=== PATIENT | female | born 1940 | race Caucasian/White ===

== ENCOUNTER 2018-05-11 10:42 | Inpatient (IN) | payer MEDICARE, OTHER ==
[2018-05-11] MEDS ORDERED: traMADol 50 MG Tab PO PRN (17:55)
[2018-05-11] MEDS ORDERED: Simethicone 80 MG Tab.Chew PO PRN (17:55)
[2018-05-11] MEDS ORDERED: Magnesium Hydroxide 400 MG/5 ML Susp 30 ML Cup PO PRN (17:55)
[2018-05-11] MEDS ORDERED: Calcium Carbonate 500 MG Tab.Chew PO PRN (17:55)
[2018-05-11] MEDS ORDERED: oxyCODONE 5 MG Tab PO PRN ×2 (17:55→20:00)
[2018-05-11] MEDS ORDERED: methylPREDNISolone Acetate 80 MG/ML SDV IM ONE (17:59)
[2018-05-11] MEDS ORDERED: Ferrous Sulfate 325 MG Tab PO ONE (19:15)
--- NOTE | 2018-05-11 19:21 | PCM.HP ---
H&P History of Present Illness - General Date of Service: 05/11/18 Admit Problem/Dx: Admission Diagnosis/Problem Admission Diagnosis/Problem Osteoarthritis Source of Information: Patient, Old Records ([facility] chart/EMR), Other (Limited records from [facility]) History Limitations: Reports: No Limitations - History of Present Illness Initial Comments - Free Text/Narative: Patient was brought to this facility right automobile from [facility] in [place] for direct admission into our swing bed unit for further strengthening, PT , OT, etc. after recent successful right hip TEP on 05/08/18. No significant complications during that hospitalization other than some mild postoperative anemia with no transfusions required. She also developed a diffuse body rash of unknown etiology with Benadryl started as per day by patient history. The patient denies any chest pain/pressure, heart flutter, dizziness, orthostasis, orthopnea, diaphoresis, paresthesias, recent decreased exercise tolerance, or any other anginal-type symptoms. No recent history of abdominal pain, heartburn , nausea, diarrhea, melena, gross hematochezia, or any food intolerance, including fatty foods, etc.. She denies any current gross hematuria, dysuria, colic, or other UTI symptoms with stable baseline urinary incontinence. The patient also denies any recent fever, cough, wheezing, dyspnea, etc.. No history of recent headaches, visual changes, diplopia, change in mental status, or other change in neurological status. Her post operative pain has remained stable. Location: Reports: Lower Extremity, Right. Denies: Head, Face, Neck, Chest, Abdomen, Back, Pelvis, Upper Extremity, Right, Lower Extremity, Left, Radiates to Quality: Reports: Ache, Same as Previous Episode Severity: Mild Improves with: Reports: Rest Worsens with: Reports: Movement Context: Reports: Other (As above) Associated Symptoms: Reports: No Other Symptoms. Denies: Confusion, Chest Pain , Cough, Diaphoresis, Fever/Chills, Headaches, Loss of Appetite, Malaise, Nausea /Vomiting, Seizure, Shortness of Breath, Syncope, Weakness Right Hip Pain Score (Numeric/FACES): 4 - Related Data Allergies/Adverse Reactions: Allergies Allergy/AdvReac Type Severity Reaction Status Date / Time No Known Allergies Allergy Verified 12/20/13 11:28 Home Medications: Home Meds Acetaminophen 650 mg PO Q4HR PRN 05/11/18 [History] Aspirin [Ecotrin] 325 mg PO BID 05/11/18 [History] Bisacodyl 5 mg PO BID PRN 05/11/18 [History] Calcium Carbonate [Tums] 500 mg PO DAILY PRN 05/11/18 [History] Celecoxib [CeleBREX] 200 mg PO BID 05/11/18 [History] Cholecalciferol (Vitamin D3) [D-2000] 2,000 unit PO DAILY 05/11/18 [History] Citalopram [Citalopram HBr] 20 mg PO BEDTIME 05/11/18 [History] Cyanocobalamin (Vitamin B-12) [B-12] 500 mcg PO DAILY 05/11/18 [History] Famotidine 10 mg PO BID 05/11/18 [History] Ferrous Sulfate 325 mg PO ASDIRECTED 05/11/18 [History] Fexofenadine [Tracie] 180 mg PO DAILY 05/11/18 [History] Gluc Lacy/Msm/Magnesium/Vit C [Glucosamine Complex-MSM] 2 tab PO BID 05/11/18 [ History] L.acidoph,Paracasei, B.lactis [Probiotic] 1 each PO DAILY 05/11/18 [History] Magnesium Hydroxide [Milk of Magnesia] 30 ml PO BID PRN 05/11/18 [History] Multivitamin [Super Multivitamin] 1 each PO DAILY 05/11/18 [History] Non-Formulary Medication [NF Drug] 1 cap PO DAILY 05/11/18 [History] Non-Formulary Medication [NF Drug] 1 tab PO DAILY 05/11/18 [History] Omeprazole 20 mg PO DAILY 05/11/18 [History] Oxybutynin 2.5 mg PO BID 05/11/18 [History] Pravastatin [Pravachol] 20 mg PO BEDTIME 05/11/18 [History] Simethicone 80 mg PO Q6H PRN 05/11/18 [History] Ubidecarenone [Coq-10] 100 mg PO BID 05/11/18 [History] diphenhydrAMINE HCl [Benadryl] 25 mg PO DAILY 05/11/18 [History] oxyCODONE 5 mg PO Q6HR PRN 05/11/18 [History] traMADol [Ultram] 50 mg PO Q6HR PRN 05/11/18 [History] Past Medical History HEENT History: Reports: Allergic Rhinitis, Cataract, Glaucoma, Impaired Vision, Retinal Detachment, Other (See Below). Denies: Hard of Hearing, Macular Degeneration Other HEENT History: Patient wears bifocals. Dry eye syndrome. Cardiovascular History: Reports: Heart Murmur, High Cholesterol, Other (See Below). Denies: Afib, Aneurysm, Arrhythmia, Blood Clots/VTE/DVT, CAD, Heart Failure, WI, PVD, Syncope Other Cardiovascular History: Moderate aortic valve stenosis and mild to moderate mitral valve deficiency by clinical exam with no previous workup Respiratory History: Reports: Intubation, Previous. Denies: Asthma, Bronchitis , Recurrent, COPD, Intubation, Difficult, PE, Pneumonia, Recurrent, Pneumothorax , Sleep Apnea Gastrointestinal History: Reports: Chronic Constipation, GERD, Hemorrhoids. Denies: Celiac Disease, Cholelithiasis, Chronic Diarrhea, Colon Polyp, Fecal Incontinence, Gastritis, GI Bleed, Hepatitis, Inflammatory Bowel Disease, Irritable Bowel Syndrome, Jaundice, Pancreatitis, PUD Genitourinary History: Reports: Urinary Incontinence, Other (See Below). Denies : Acute Renal Failure, Chronic Renal Insuffiency, Renal Calculus, Retention, Urinary, STD Other Genitourinary History: History of stress incontinence [employer] History: Reports: Dysfunctional Uterine Bleeding, Fibroids, , Spontaneous . Denies: Endometriosis, Polycystic Ovaries : 5 Para: 4 LMP (Approximate): Other (See Below) Other OB/BYN History: Positive at about age 51. Third with placenta previa and early delivery at 34 weeks gestation. Otherwise Full term without complications during pregnancies or deliveries. First trimester SAB not requiring D&C. Musculoskeletal History: Reports: Arthritis, Back Pain, Chronic, Fracture, Fibromyalgia, Neck Pain, Chronic, Osteoarthritis, Osteoporosis. Denies: Amputation, Gout, RA, SLE Other Musculoskeletal History: Vertebral body compression fractures of L1, L3, and L5 by MRI. Right fifth metatarsal fracture in about 1979. Right proximal humeral fracture on 12/10/14. Lumbar spinal stenosis. Neurological History: Reports: None. Denies: Cerebral Aneurysms, Concussion, CVA, Headaches, Chronic, Head Trauma, Migraines, MS, Neuropathy, Peripheral, Parkinson's, Seizure, TIA Psychiatric History: Reports: Anxiety, Depression. Denies: Abuse, Victim of, ADD, ADHD, Addiction, Psych Hospitalization(s), PTSD, Suicide Attempt, Suicidal Ideation Endocrine/Metabolic History: Reports: Obesity/BMI 30+, Osteopenia, Osteoporosis. Denies: Diabetes, Type I, Diabetes, Type II, Hypothyroidism, IDDM Hematologic History: Reports: Anemia, Blood Transfusion(s), Iron Deficiency, Other (See Below). Denies: B12 Deficiency Other Hematologic History: blood transfusion after her third delivery in October 1965 Immunologic History: Reports: None. Denies: AIDS, HIV, SLE Oncologic (Cancer) History: Reports: None. Denies: Basal Cell Carcinoma, Breast , Cervix, Colon, Hodgkin's Lymphoma, Leukemia, Lymphoma, Malignant Melanoma, Non -Hodgkin's Lymphoma, Ovarian, Squamous Cell Carcinoma, Uterine Dermatologic History: Reports: Other (See Below). Denies: Eczema, Psoriasis Other Dermatologic History: Actinic keratosis. - Infectious Disease History Infectious Disease History: Reports: Chicken Pox, Measles. Denies: C-Difficile , Meningitis, Mononucleosis, MRSA, Mumps, Pertussis (Whooping Cough), Rheumatic Fever, Rubella, Scarlet Fever, Shingles, TB, VRE - Past Surgical History Head Surgeries/Procedures: Reports: Other (See Below) Other Head Surgeries/Procedures: IR cerebral embolization per [facility] records, although the patient is not aware of this. HEENT Surgical History: Reports: Cataract Surgery, Detached Retina, Eye Surgery , Oral Surgery, Other (See Below). Denies: Adenoidectomy, LASIK, Myringotomy w Tube(s), Naso-Sinus Surgery, Polypectomy, Tonsillectomy Other HEENT Surgeries/Procedures: Waddy teeth extraction 2 with 1 tooth in about 1999 and the second tooth in about 2005. Known type of left eye surgery in about 1999. Left cataract surgery on 11/30/17. Right cataract surgery on . Corneal repair for retinal detachment in 1996. Iridectomy bilaterally with YAG treatment on 10/11/17 Cardiovascular Surgical History: Reports: None, Varicose, Other (See Below) Other Cardiovascular Surgeries/Procedures: Varicose vein stripping of the left leg in about 2007. Respiratory Surgical History: Reports: None. Denies: Thoracentesis GI Surgical History: Reports: Colonoscopy, Other (See Below). Denies: Appendectomy, Cholecystectomy, EGD, Hernia, Abdominal, Hernia, Inguinal, Hernia Repair/Other, Polypectomy Other GI Surgeries/Procedures: Last colonoscopy on 01/10/14. Female Surgical History: Reports: Breast Biopsy, Other (See Below). Denies: D&C, Hysterectomy, Oophorectomy, Salpingo-Oophorectomy, Tubal Ligation Other Female Surgeries/Procedures: Breast biopsy of the right breast in 1988 with subsequent right breast biopsy in the for benign disease. Endocrine Surgical History: Reports: None. Denies: Thyroid Biopsy Neurological Surgical History: Reports: None. Denies: C-Spine, Discectomy, Laminectomy, Lumbar Spine, Sacral Spine, Spinal Fusion, Thoracic Spine, Vertebroplasty Musculoskeletal Surgical History: Reports: Carpal Tunnel, Hip Replacement, Other (See Below). Denies: Arthroscopic Procedure, Ganglion Cyst, ORIF, Shoulder Surgery Other Musculoskeletal Surgeries/Procedures:: Left hip TEP on 08/01/12. Right hip TEP on 05/08/18. Bilateral carpal tunnel release in about 2001 Oncologic Surgical History: Reports: None Dermatological Surgical History: Reports: None - Past Imaging History Past Imaging History: Reports: Bone Scan (Bone scan of the thoracic and lumbar spines on 05/11/12), DEXA Scan (04/24/12), Mammogram (Last mammogram on 03/17/18), MRI (MRI of the C-spine on 05/23/12. MRI of the lumbar spine on 05/29/12.), Ultrasound (Soft tissue ultrasound at T3 on 11/06/12.) Social & Family History - Family History HEENT: Reports: Cataract, Impaired Vision, Macular Degeneration, Other (See Below). Denies: Allergic Rhinitis, Glaucoma, Retinal Detachment Other HEENT Family History: Mother with macular degeneration and cataracts. Cardiac: Reports: Arrhythmia, CAD, Heart Failure, Hypertension, Other (See Below ). Denies: Afib, Aneurysm, Blood Clots/VTE/DVT, Heart Murmur, High Cholesterol , WI, PVD/COD Other Cardiac Family History: Mother with fatal CHF at age 94 with additional history of hypertension. Sister with unknown type of tachycardia. Father with hypertension. Respiratory: Reports: None. Denies: Asthma, COPD, PE, Pneumothorax, Sleep Apnea GI: Reports: Celiac Disease, Other (See Below). Denies: Cholelithiasis, Colon Polyps, GERD, GI bleed, Hepatitis, Hiatal Hernia, Inflammatory Bowel Disease, Irritable Bowel Syndrome Other GI Family History: Mother with irritable bowel syndrome. Niece with celiac disease. : Reports: None. Denies: Renal Calculus, Renal Disease/Insufficiency OBGYN: Reports: Dysfunctional uterine bleeding, Endometriosis, Fibroids, Other ( See Below). Denies: Recurrent Spontaneous Other OBGYN Family History: Daughter with endometriosis and uterine fibroids requiring hysterectomy. Musculoskeletal: Reports: Arthritis, Back pain, Chronic, Osteoarthritis, Other ( See Below) (Father). Denies: Gout, RA, SLE Other Musculoskeletal Family History: Father with osteoarthritis. Neurological: Reports: Migraines, Other (See Below). Denies: Alzheimers Disease , Cerebral Aneurysms, CVA, Dementia, MS, Neuropathy, Peripheral, Seizure, TIA Other Neurological Family History: Son, daughter, and granddaughter with migraine headaches Psychiatric: Reports: Anxiety, Depression, Other (See Below). Denies: Abuse, Victim of, ADD, ADHD, PTSD Other Psychiatric Family History: Father with anxiety depression disorder and alcohol abuse Endocrine/Metabolic: Reports: Diabetes, Type I, IDDM, Other (See Below). Denies : Diabetes, type II, Hypothyroidism Other Endocrine/Metabolic Family History: Nephew with type I IDDM Hematologic: Reports: None. Denies: Anemia, SLE Immunologic: Reports: None. Denies: AIDS, HIV, SLE Dermatologic: Reports: None. Denies: Eczema, Psoriasis Oncologic: Reports: Lymphoma, Other (See Below). Denies: Breast, Cervix, Colon , Hodgkin's Lymphoma, Leukemia, Non-Hodgkin's Lymphoma, Skin Other Oncologic Family History: Father with fatal lymphoma at age 76. - Tobacco Use Smoking Status *Q: Never Smoker Tobacco Use Within Last Twelve Months: No Used Tobacco, but Quit: No Smoking Cessation Information Provided To Patient: No Second Hand Smoke Exposure: No Second Hand Smoke Education Provided: No - Caffeine Use Caffeine Use: Reports: Soda (2 sodas per day), Tea (One cup every 2 weeks). 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 Exam - Exam Exam: See Below - Vital Signs Vital Signs: Last Vital Signs Temp 36.0 C 05/11/18 17:45 Pulse 76 05/11/18 17:45 Resp 18 05/11/18 17:45 BP 115/57 L 05/11/18 17:45 Pulse Ox 93 L 05/11/18 17:45 Weight: 114.487 kg - Exam Quality Assessment: DVT Prophylaxis. No: Supplemental Oxygen, Central Line/PICC , Urinary Catheter, Skin Breakdown, Restraints General: Alert, Oriented, Cooperative HEENT: Conjunctiva Clear, EACs Clear, EOMI, Hearing Intact, Mucosa Moist & Spivey , Nares Patent, Normal Nasal Septum, Posterior Pharynx Clear, TMs Clear, Glasses , PERRLA Neck: Supple, Trachea Midline, Full Range of Motion, Carotid Bruit (Mild to moderate bilateral carotid bruits versus transmitted heart sounds). No: Lymphadenopathy, Thyromegaly Lungs: Clear to Auscultation, Normal Respiratory Effort. No: Rub Cardiovascular: Regular Rate, Regular Rhythm, Normal S1, Normal S2, Systolic Murmur (3/6 ADRIANNE of the aortic valve with 2/6 ADRIANNE of the mitral valve). No: Diastolic Murmur, Rubs, Gallop/S3, Gallop/S4 GI/Abdominal Exam: Normal Bowel Sounds, Soft, Non-Tender, No Organomegaly, No Distention, No Abnormal Bruit, No Mass, Pelvis Stable, Other (Obese). No: Guarding (Female) Exam: Deferred Rectal (Female) Exam: Deferred Back Exam: Normal Inspection, Full Range of Motion. No: CVA Tenderness (L), CVA Tenderness (R), Muscle Spasm Extremities: No Pedal Edema, Normal Capillary Refill, Limited Range of Motion ( Right hip secondary to recent surgery with dressing in place and no evidence significant drainage, etc.). No: Pedal Edema, Susan's Sign Peripheral Pulses: 1+: Dorsalis Pedis (L), Dorsalis Pedis (R), 2+: Radial (L), Radial (R) Skin: Rash (Moderate to severe diffuse body rash including back, chest, neck, axillary and inguinal regions, etc. No angioedema.), Incision (Postoperative incision right hip) Neurological: Cranial Nerves Intact, Reflexes Equal Bilateral. No: Babinski Psychiatric: Alert, Normal Affect, Normal Mood. No: Agitated, Hallucinations, Withdrawal Symptoms - Patient Data Lab Results Last 24 hrs: Blood work to be conducted in the a.m. - Problem List (1) Heart murmur SNOMED Code(s): 88958320 ICD Code: R01.1 - CARDIAC MURMUR, UNSPECIFIED Status: Chronic Priority: Medium Current Visit: Yes Problem Details: Significant cardiac murmurs as above. Echocardiogram recommended after discharge from swing bed.. No chest pain or anginal symptoms. Consider further cardiac workup depending on her clinical course. (2) Hyperlipidemia SNOMED Code(s): 85284540 ICD Code: E78.5 - HYPERLIPIDEMIA, UNSPECIFIED Status: Chronic Priority: Medium Current Visit: Yes Problem Details: Close follow-up by regular providers after discharge Qualifiers: Hyperlipidemia type: unspecified Qualified Code(s): E78.5 - Hyperlipidemia , unspecified (3) Iron deficiency anemia SNOMED Code(s): 57026760 ICD Code: D50.9 - IRON DEFICIENCY ANEMIA, UNSPECIFIED Status: Chronic Priority: Medium Current Visit: Yes Problem Details: Iron studies to be conducted in the a.m. Note some postoperative anemia prior to discharge. Qualifiers: Iron deficiency anemia type: other iron deficiency Qualified Code(s): D50.8 - Other iron deficiency anemias (4) Mixed anxiety and depressive disorder SNOMED Code(s): 180985492 ICD Code: F41.8 - OTHER SPECIFIED ANXIETY DISORDERS Status: Chronic Priority: Medium Current Visit: Yes Problem Details: Stable by patient history (5) Osteoarthritis SNOMED Code(s): 979532235 ICD Code: M19.90 - UNSPECIFIED OSTEOARTHRITIS, UNSPECIFIED SITE Status: Acute Priority: Medium Current Visit: No Problem Details: Otherwise stable by patient history after recent right hip surgery as above. Continue to observe closely secondary to discontinuation of Celebrex as below. (6) Peptic reflux disease SNOMED Code(s): 834196972 ICD Code: K21.9 - GASTRO-ESOPHAGEAL REFLUX DISEASE WITHOUT ESOPHAGITIS Status: Acute Priority: Medium Current Visit: Yes Problem Details: Stable with current medications (7) Allergic dermatitis SNOMED Code(s): 338398131 ICD Code: L23.9 - ALLERGIC CONTACT DERMATITIS, UNSPECIFIED CAUSE Status: Acute Priority: High Current Visit: Yes Onset Date: ~05/10/18 Problem Details: Significant allergic dermatitis of unknown etiology. Hold Celebrex for now. Patient's Benadryl is to be increased with additional IM Depo-Medrol given shortly after admission. Problem List Initiated/Reviewed/Updated: Yes Orders Last 24hrs: Active Orders 24 hr Category Date Time Status Patient Status [ADT] Routine ADT 05/11/18 13:00 Active Ambulate [RC] ASDIRECTED Care 05/11/18 17:45 Active Ambulate [RC] ASDIRECTED Care 05/11/18 17:45 Active Communication Order [RC] DAILY Care 05/11/18 19:12 Active Communication Order [RC] DAILY Care 05/11/18 19:15 Active Communication Order [RC] ROUTINE Care 05/11/18 18:02 Active Height and Weight [RC] PER UNIT ROUTINE Care 05/11/18 17:49 Active Intake and Output [RC] ASDIRECTED Care 05/11/18 17:45 Active May Shower [RC] ASDIRECTED Care 05/11/18 17:45 Active Notify Provider Vital Signs [RC] ASDIRECTED Care 05/11/18 17:49 Active Oxygen Therapy [RC] PRN Care 05/11/18 17:45 Active VTE/DVT Education [RC] PER UNIT ROUTINE Care 05/11/18 17:45 Active Vital Signs [RC] PER UNIT ROUTINE Care 05/11/18 17:45 Active Consult to Case Management [CONS] Routine Cons 05/11/18 17:45 Active Consult to Chop Saw Operator [CONS] Routine Cons 05/11/18 17:45 Active Consult to Spiritual Care [CONS] Routine Cons 05/11/18 17:45 Active OT Evaluation and Treatment [CONS] Routine Cons 05/11/18 17:45 Active PT Evaluation and Treatment [CONS] Routine Cons 05/11/18 17:45 Active Heart Healthy Diet [DIET] Diet 05/11/18 Dinner Active Acetaminophen [Tylenol] Med 05/11/18 17:55 Active 650 mg PO Q4H PRN Aspirin [Ecotrin] Med 05/11/18 18:00 Active 325 mg PO BID Bisacodyl [Dulcolax] Med 05/11/18 17:55 Active 5 mg PO BID PRN Calcium Carbonate [Tums] Med 05/11/18 17:55 Pending 500 mg PO DAILY PRN Calcium Carbonate/Vitamin D3 [Caltrate 600+D 1500 MG- Med 05/12/18 08:00 Active 400 Units] 1 tab PO DAILY Cholecalciferol (Vitamin D3) [Vitamin D3] Med 05/12/18 08:00 Active 2,000 units PO DAILY Chondroitin/Glucosamine [Glucosamine-Chondroitin 500- Med 05/11/18 18:00 Active 400 Capsule] 2 cap PO BID Citalopram [Celexa] Med 05/11/18 20:00 Active 20 mg PO BEDTIME Cyanocobalamin (Vitamin B12) [Vitamin B12] Med 05/12/18 08:00 Active 500 mcg PO DAILY Famotidine [Pepcid] Med 05/11/18 18:00 Active 20 mg PO BID Ferrous Sulfate Med 05/11/18 18:00 Pending 325 mg PO ASDIRECTED Fexofenadine [Tracie] Med 05/12/18 08:00 Active 180 mg PO DAILY Lactobacillus Rhamnosus GG [Culturelle] Med 05/12/18 08:00 Active 1 cap PO DAILY Magnesium Hydroxide [Milk of Magnesia] Med 05/11/18 17:55 Active 30 ml PO BID PRN Multivitamins [Tab-A-Rd] Med 05/12/18 08:00 Active 1 tab PO DAILY Non-Formulary Medication [NF Drug] Med 05/12/18 08:00 Pending DOSE each PO DAILY Omeprazole Med 05/12/18 08:00 Active 20 mg PO DAILY Oxybutynin Med 05/11/18 18:00 Active 2.5 mg PO BID Pravastatin [Pravachol] Med 05/11/18 20:00 Active 20 mg PO BEDTIME Simethicone Med 05/11/18 17:55 Active 80 mg PO Q6H PRN Ubidecarenone [Coenzyme Q10] Med 05/11/18 18:00 Pending 100 mg PO BID diphenhydrAMINE [Benadryl] Med 05/11/18 17:59 Active 25 mg PO Q4H PRN oxyCODONE Med 05/11/18 17:55 Active 5 mg PO Q6HR PRN traMADol [Ultram] Med 05/11/18 17:55 Active 50 mg PO Q6HR PRN Anticoagulation Contraindications VTE [AST] Per Unit Oth 05/11/18 17:45 Ordered Routine Anticoagulation Contraindications VTE [AST] Routine Oth 05/11/18 17:45 Ordered Antiembolic Hose [OM.PC] Per Unit Routine Oth 05/11/18 17:49 Ordered Patient May [OM.PC] Click To Edit Oth 05/11/18 17:45 Ordered VTE Mechanical Contraindications [AST] Per Unit Routine Oth 05/11/18 17:45 Ordered VTE Mechanical Contraindications [AST] Routine Oth 05/11/18 17:45 Ordered VTE Pharmacological Contraindications [AST] Per Unit Oth 05/11/18 17:45 Ordered Routine VTE Pharmacological Contraindications [AST] Routine Ot 05/11/18 17:45 Ordered Resuscitation Status Routine Resus Stat 05/11/18 17:45 Ordered Medication Orders Acetaminophen (Tylenol) 650 mg PO Q4H PRN PRN Reason: Pain Aspirin (Ecotrin) 325 mg PO BID [facility] Stop: 06/13/18 08:01 Bisacodyl (Dulcolax) 5 mg PO BID PRN PRN Reason: Constipation Calcium Carbonate (Caltrate 600+D 1500 Mg-400 Units) 1 tab PO DAILY [facility] Calcium Carbonate/Glycine (Tums) 500 mg PO DAILY PRN PRN Reason: Pain Cholecalciferol (Vitamin D3) 2,000 units PO DAILY [facility] Citalopram Hydrobromide (Celexa) 20 mg PO BEDTIME [facility] Coenzyme Q10 (Coenzyme Q10) 100 mg PO BID [facility] Cyanocobalamin (Vitamin B12) 500 mcg PO DAILY [facility] Diphenhydramine HCl (Benadryl) 25 mg PO Q4H PRN PRN Reason: Itching Famotidine (Pepcid) 20 mg PO BID [facility] Ferrous Sulfate (Ferrous Sulfate) 325 mg PO ASDIRECTED [facility] Fexofenadine HCl (Tracie) 180 mg PO DAILY [facility] Glucosamine/Chondroitin (Glucosamine-Chondroitin 500-400 Capsule) 2 cap PO BID [facility] Lactobacillus Rhamnosus (Culturelle) 1 cap PO DAILY [facility] Magnesium Hydroxide (Milk Of Magnesia) 30 ml PO BID PRN PRN Reason: Constipation Multivitamins/Minerals/Vitamin C (Tab-A-Rd) 1 tab PO DAILY [facility] Non-Formulary Medication (Nf Drug) each PO DAILY [facility] Omeprazole (Omeprazole) 20 mg PO DAILY [facility] Oxybutynin Chloride (Oxybutynin) 2.5 mg PO BID [facility] Oxycodone HCl (Oxycodone) 5 mg PO Q6HR PRN PRN Reason: Pain Pravastatin Sodium (Pravachol) 20 mg PO BEDTIME [facility] Simethicone (Simethicone) 80 mg PO Q6H PRN PRN Reason: Gas Tramadol HCl (Ultram) 50 mg PO Q6HR PRN PRN Reason: Pain Assessment/Plan Comment:: As above. Physical therapy, occupational therapy, etc. ordered for strengthening. Blood work to be conducted in the a.m. Extensive precautions were given to the patient, who is in agreement with the treatment plan. Discharge to home after patient completes physical therapy, etc.
[2018-05-11] MEDS: Aspirin 325 MG Tab.EC PO SCH (19:53)
[2018-05-11] MEDS: Chondroitin/Glucosamine Cap PO SCH (19:53)
[2018-05-11] MEDS: Oxybutynin 5 MG Tab PO SCH (19:55)
[2018-05-11] MEDS: Famotidine 20 MG Tab PO SCH (19:55)
[2018-05-11] MEDS: Citalopram 20 MG Tab PO SCH (19:56)
[2018-05-11] MEDS: Pravastatin 20 MG Tab PO SCH (19:57)
[2018-05-11] MEDS: traMADol 50 MG Tab PO PRN (20:01)
[2018-05-11] MEDS: diphenhydrAMINE 25 MG Cap PO PRN (20:10)
[2018-05-12] MEDS: Acetaminophen 325 MG Tab PO PRN (01:13)
[2018-05-12] MEDS: Aspirin 325 MG Tab.EC PO SCH ×2 (07:50→18:07)
[2018-05-12] MEDS: Calcium Carbonate/Vitamin D3 1500 MG-400 Units Tab PO SCH (07:50)
[2018-05-12] MEDS: Lactobacillus Rhamnosus GG (Probiotic) Cap PO SCH (07:50)
[2018-05-12] MEDS: Oxybutynin 5 MG Tab PO SCH ×2 (07:51→18:08)
[2018-05-12] MEDS: Chondroitin/Glucosamine Cap PO SCH ×2 (07:51→18:08)
[2018-05-12] MEDS: Omeprazole 20 MG Cap.CR PO SCH (07:51)
[2018-05-12] MEDS: Famotidine 20 MG Tab PO SCH ×2 (07:52→18:10)
[2018-05-12] MEDS: Multivitamin Tab PO SCH (07:52)
[2018-05-12] MEDS: Cyanocobalamin (Vitamin B12) 1,000 MCG Tab PO SCH (07:53)
[2018-05-12] MEDS: Cholecalciferol (Vitamin D3) 1,000 Unit Tab PO SCH (07:54)
[2018-05-12 08:50] LABS: CHLORIDE,CL 105 mmol/L (98-107); SODIUM,NA 138 mmol/L (136-145)
[2018-05-12] MEDS: traMADol 50 MG Tab PO PRN ×2 (10:56→19:53)
[2018-05-12] MEDS ORDERED: Ferrous Sulfate 325 MG Tab PO SCH (13:00)
--- NOTE | 2018-05-12 13:29 | PCM.SN ---
- Free Text/Narrative Note: Today's blood work results as below, EKG, chest x-ray findings were reviewed with the patient today. EKG does indicate T-wave inversion in leads 3 and V3 through V6 consistent with probable lateral wall cardiac ischemia. No chest pain or anginal type symptoms. Her current anemia may be a contributing factor in unmasking her possible cardiac ischemia. Secondary to her cardiac murmurs and today's EKG findings recommend further cardiac workup on an outpatient basis after discharge, including echocardiogram and probable dobutamine Cardiolite stress test. Today's chest x-ray, PA and lateral, shows somewhat poor inspiratory film with mild to moderate cardiomegaly, moderate COPD, and probable mild pulmonary hypertension versus centralized CHF. Note large hiatal hernia present with elevated left hemidiaphragm. Additional moderate osteoarthritic and osteoporotic changes noted in the thoracic spine with additional kyphosis. Patient may benefit from PFTs. The patient is currently nonsymptomatic on omeprazole therapy. Note mild thrombocytopenia with platelets of 138 and progressive postoperative anemia with hemoglobin of 8.7 and evidence of iron deficiency by today's blood work as below. Iron supplement to be increased to 3 times a day basis with recommended iron studies in about 4 weeks. Also note hypoalbuminemia with high-protein Glucerna supplements to be started on a twice a day basis. Glycosylated hemoglobin was normal today. Blood work will be repeated in one week. Her rash has improved somewhat today. Laboratory Results - last 24 hr 05/12/18 05/12/18 05/12/18 Range/Units 07:40 07:40 07:40 WBC 5.8 (4.0-10.2) K/uL RBC 2.77 L (3.77-5.09) M/uL Hgb 8.7 L (11.7-15.5) g/dL Hct 25.6 L (34.0-46.0) % MCV 92.4 (84.0-98.0) fL MCH 31.4 (28.2-33.3) pg MCHC 34.0 (31.7-36.0) g/dL RDW 13.3 (11.2-14.1) % Plt Count 138 L (150-350) K/uL Neut % (Auto) 77.6 (45.0-80.0) % Lymph % (Auto) 10.8 (10.0-50.0) % [place] % (Auto) 9.2 (2.0-14.0) % Eos % (Auto) 2.4 (0.0-5.0) % Baso % (Auto) 0.0 (0.0-2.0) % Neut # (Auto) 4.46 (1.40-7.00) K/uL Lymph # (Auto) 0.62 (0.50-3.50) K/uL [place] # (Auto) 0.53 (0.00-1.00) K/uL Eos # (Auto) 0.14 (0.00-0.50) K/uL Baso # (Auto) 0.00 (0.00-0.20) K/uL Sodium 138 (136-145) mmol/L Potassium 4.7 (3.5-5.1) mmol/L Chloride 105 (98-107) mmol/L Carbon Dioxide 26.3 (21.0-32.0) mmol/L BUN 15 (7-18) mg/dL Creatinine 0.65 (0.51-1.17) mg/dL Est Cr Clr Drug Dosing 76.95 mL/min Estimated GFR (MDRD) > 60 mL/min Glucose 131 H (74-106) mg/dL Hemoglobin A1c (4.3-5.7) % Uric Acid 3.5 (2.6-7.2) mg/dL Calcium 8.8 (8.5-10.1) mg/dL Magnesium 1.9 (1.8-2.4) mg/dL Iron 18 L (50-175) ug/dL TIBC 195 L (250-450) ug/dL % Saturation [id number] Total Bilirubin 0.4 (0.2-1.0) mg/dL AST 30 (15-37) U/L ALT 18 (12-78) U/L Alkaline Phosphatase 70 (46-116) IU/L Total Protein 6.0 L (6.4-8.2) g/dL Albumin 2.5 L (3.4-5.0) g/dL Vitamin B12 417 (193-986) pg/mL TSH, Ultra Sensitive 3.393 (0.358-3.740) mIU/mL 05/12/18 Range/Units 07:40 WBC (4.0-10.2) K/uL RBC (3.77-5.09) M/uL Hgb (11.7-15.5) g/dL Hct (34.0-46.0) % MCV (84.0-98.0) fL MCH (28.2-33.3) pg MCHC (31.7-36.0) g/dL RDW (11.2-14.1) % Plt Count (150-350) K/uL Neut % (Auto) (45.0-80.0) % Lymph % (Auto) (10.0-50.0) % [place] % (Auto) (2.0-14.0) % Eos % (Auto) (0.0-5.0) % Baso % (Auto) (0.0-2.0) % Neut # (Auto) (1.40-7.00) K/uL Lymph # (Auto) (0.50-3.50) K/uL [place] # (Auto) (0.00-1.00) K/uL Eos # (Auto) (0.00-0.50) K/uL Baso # (Auto) (0.00-0.20) K/uL Sodium (136-145) mmol/L Potassium (3.5-5.1) mmol/L Chloride (98-107) mmol/L Carbon Dioxide (21.0-32.0) mmol/L BUN (7-18) mg/dL Creatinine (0.51-1.17) mg/dL Est Cr Clr Drug Dosing mL/min Estimated GFR (MDRD) mL/min Glucose (74-106) mg/dL Hemoglobin A1c 5.8 H (4.3-5.7) % Uric Acid (2.6-7.2) mg/dL Calcium (8.5-10.1) mg/dL Magnesium (1.8-2.4) mg/dL Iron (50-175) ug/dL TIBC (250-450) ug/dL % Saturation Total Bilirubin (0.2-1.0) mg/dL AST (15-37) U/L ALT (12-78) U/L Alkaline Phosphatase (46-116) IU/L Total Protein (6.4-8.2) g/dL Albumin (3.4-5.0) g/dL Vitamin B12 (193-986) pg/mL TSH, Ultra Sensitive (0.358-3.740) mIU/mL
[2018-05-12] MEDS: Ferrous Sulfate 325 MG Tab PO SCH (18:08)
[2018-05-12] MEDS: Pravastatin 20 MG Tab PO SCH (19:46)
[2018-05-12] MEDS: Citalopram 20 MG Tab PO SCH (19:47)
[2018-05-13] MEDS: Calcium Carbonate/Vitamin D3 1500 MG-400 Units Tab PO SCH (08:32)
[2018-05-13] MEDS: Lactobacillus Rhamnosus GG (Probiotic) Cap PO SCH (08:33)
[2018-05-13] MEDS: Ferrous Sulfate 325 MG Tab PO SCH ×3 (08:34→17:51)
[2018-05-13] MEDS: Aspirin 325 MG Tab.EC PO SCH ×2 (08:34→17:50)
[2018-05-13] MEDS: Chondroitin/Glucosamine Cap PO SCH ×2 (08:35→17:51)
[2018-05-13] MEDS: Omeprazole 20 MG Cap.CR PO SCH (08:35)
[2018-05-13] MEDS: Oxybutynin 5 MG Tab PO SCH ×2 (08:41→17:52)
[2018-05-13] MEDS: Multivitamin Tab PO SCH (08:42)
[2018-05-13] MEDS: Famotidine 20 MG Tab PO SCH ×2 (08:42→17:52)
[2018-05-13] MEDS: Cyanocobalamin (Vitamin B12) 1,000 MCG Tab PO SCH (08:43)
[2018-05-13] MEDS: Cholecalciferol (Vitamin D3) 1,000 Unit Tab PO SCH (08:43)
[2018-05-13] MEDS: Acetaminophen 325 MG Tab PO PRN ×2 (08:46→17:54)
[2018-05-13] MEDS: Pravastatin 20 MG Tab PO SCH (19:47)
[2018-05-13] MEDS: Citalopram 20 MG Tab PO SCH (19:48)
[2018-05-13] MEDS: MAGNESIUM WITH ZINC PO SCH ×2 (22:31→22:33)
[2018-05-14] MEDS: diphenhydrAMINE 25 MG Cap PO PRN (02:35)
[2018-05-14] MEDS: Calcium Carbonate/Vitamin D3 1500 MG-400 Units Tab PO SCH (07:53)
[2018-05-14] MEDS: Lactobacillus Rhamnosus GG (Probiotic) Cap PO SCH (07:54)
[2018-05-14] MEDS: Aspirin 325 MG Tab.EC PO SCH ×2 (07:54→19:43)
[2018-05-14] MEDS: Ferrous Sulfate 325 MG Tab PO SCH ×3 (07:54→19:44)
[2018-05-14] MEDS: Chondroitin/Glucosamine Cap PO SCH ×2 (07:55→19:44)
[2018-05-14] MEDS: Omeprazole 20 MG Cap.CR PO SCH (07:56)
[2018-05-14] MEDS: Oxybutynin 5 MG Tab PO SCH ×2 (07:56→19:44)
[2018-05-14] MEDS: Famotidine 20 MG Tab PO SCH ×2 (07:58→19:46)
[2018-05-14] MEDS: Cyanocobalamin (Vitamin B12) 1,000 MCG Tab PO SCH (07:59)
[2018-05-14] MEDS: Multivitamin Tab PO SCH (07:59)
[2018-05-14] MEDS: Cholecalciferol (Vitamin D3) 1,000 Unit Tab PO SCH (08:00)
[2018-05-14] MEDS: Acetaminophen 325 MG Tab PO PRN (15:52)
[2018-05-14] MEDS ORDERED: Omeprazole 20 MG Cap.CR PO ONE (16:50)
[2018-05-14] MEDS: MAGNESIUM WITH ZINC PO SCH (17:18)
[2018-05-14] MEDS: Pravastatin 20 MG Tab PO SCH (20:57)
[2018-05-14] MEDS: Citalopram 20 MG Tab PO SCH (20:57)
[2018-05-15] MEDS: Calcium Carbonate/Vitamin D3 1500 MG-400 Units Tab PO SCH (09:09)
[2018-05-15] MEDS: Lactobacillus Rhamnosus GG (Probiotic) Cap PO SCH (09:10)
[2018-05-15] MEDS: Aspirin 325 MG Tab.EC PO SCH ×2 (09:11→17:32)
[2018-05-15] MEDS: Ferrous Sulfate 325 MG Tab PO SCH ×3 (09:12→17:32)
[2018-05-15] MEDS: Chondroitin/Glucosamine Cap PO SCH ×2 (09:12→17:33)
[2018-05-15] MEDS: MAGNESIUM WITH ZINC PO SCH (09:13)
[2018-05-15] MEDS: Omeprazole 20 MG Cap.CR PO SCH (09:14)
[2018-05-15] MEDS: Oxybutynin 5 MG Tab PO SCH ×2 (09:15→17:33)
[2018-05-15] MEDS: Famotidine 20 MG Tab PO SCH ×2 (09:16→17:34)
[2018-05-15] MEDS: Multivitamin Tab PO SCH (09:16)
[2018-05-15] MEDS: Cholecalciferol (Vitamin D3) 1,000 Unit Tab PO SCH (09:17)
[2018-05-15] MEDS: Cyanocobalamin (Vitamin B12) 1,000 MCG Tab PO SCH (09:18)
[2018-05-15] MEDS: Acetaminophen 325 MG Tab PO PRN (19:16)
[2018-05-15] MEDS: Bisacodyl 5 MG Tab PO PRN (19:17)
[2018-05-15] MEDS: Citalopram 20 MG Tab PO SCH (20:31)
[2018-05-15] MEDS: Magnesium Oxide 400 MG Tab PO SCH (20:32)
[2018-05-15] MEDS: Pravastatin 20 MG Tab PO SCH (20:32)
[2018-05-16] MEDS: Oxybutynin 5 MG Tab PO SCH ×2 (07:32→17:43)
[2018-05-16] MEDS: Omeprazole 20 MG Cap.CR PO SCH (07:32)
[2018-05-16] MEDS: Aspirin 325 MG Tab.EC PO SCH ×2 (08:48→17:41)
[2018-05-16] MEDS: Lactobacillus Rhamnosus GG (Probiotic) Cap PO SCH (08:48)
[2018-05-16] MEDS: Calcium Carbonate/Vitamin D3 1500 MG-400 Units Tab PO SCH (08:48)
[2018-05-16] MEDS: Ferrous Sulfate 325 MG Tab PO SCH ×3 (08:49→17:41)
[2018-05-16] MEDS: Chondroitin/Glucosamine Cap PO SCH ×2 (08:49→17:42)
[2018-05-16] MEDS: Famotidine 20 MG Tab PO SCH ×2 (08:50→17:42)
[2018-05-16] MEDS: Multivitamin Tab PO SCH (08:50)
[2018-05-16] MEDS: Cholecalciferol (Vitamin D3) 1,000 Unit Tab PO SCH (08:51)
[2018-05-16] MEDS: Bisacodyl 5 MG Tab PO PRN (09:33)
[2018-05-16] MEDS ORDERED: Cyanocobalamin (Vitamin B12) 1,000 MCG Tab PO SCH (20:00)
[2018-05-16] MEDS: Citalopram 20 MG Tab PO SCH (20:08)
[2018-05-16] MEDS: Pravastatin 20 MG Tab PO SCH (20:10)
[2018-05-16] MEDS: Magnesium Oxide 400 MG Tab PO SCH (20:18)
[2018-05-17] MEDS: Acetaminophen 325 MG Tab PO PRN ×2 (00:50→21:51)
[2018-05-17] MEDS: Oxybutynin 5 MG Tab PO SCH ×2 (07:37→17:36)
[2018-05-17] MEDS: Omeprazole 20 MG Cap.CR PO SCH (07:37)
[2018-05-17] MEDS: Aspirin 325 MG Tab.EC PO SCH ×2 (08:32→17:36)
[2018-05-17] MEDS: Ferrous Sulfate 325 MG Tab PO SCH (11:29)
[2018-05-17] MEDS: Citalopram 20 MG Tab PO SCH (19:34)
[2018-05-18] MEDS: Aspirin 325 MG Tab.EC PO SCH ×2 (07:25→18:01)
[2018-05-18] MEDS: Oxybutynin 5 MG Tab PO SCH ×2 (07:25→18:01)
[2018-05-18] MEDS: Omeprazole 20 MG Cap.CR PO SCH (07:25)
[2018-05-18 08:07] LABS: CHLORIDE,CL 104 mmol/L (98-107); SODIUM,NA 138 mmol/L (136-145)
--- OUTSIDE RECORDS SUMMARY | 2018-05-18 09:59 | XMSREPORT | Summary of Care ---
:1940 Author Organization [facility] Address [address] [place] [address] Phone Care Team Providers Name Role Phone Provider, No Attributed RESOURCE Attributed Provider Unavailable Elly Guerra Primary Care Provider Reason for Visit Auth/Cert (Routine) Status Reason Specialty Diagnoses / Referred By Referred To Procedures Contact Contact Continuity of Care Diagnoses Unilateral primary osteoarthritis, right knee DJD (degenerative joint disease) Pain in right hip Order initially indicated M17.11, right knee pain in error Uriah Welch, Procedures ARTHROPLASTY ACETABULAR PROXIMAL FEMORAL PROSTHETIC REPLACE [facility] GIORGIO REYES [address] [place] [id number] Encounter Details Date Type Department Care Team Description 05/08/2018 - Hospital Encounter [facility] Yuri, S/P total hip 05/11/[address] MD Uriah arthroplasty [address] [address] [place], [place] [phone] [facility] [phone] Allergies No Known Allergiesas of this encounter Medications Prescription Sig. Disp. Refills Start End Date Status Date oxyCODONE (OXY-IR) 5 Take 1 tablets 40 tablet 0 Active mg tablet (immediate for severe pain 8 release)Indications: if needed, every Status post total 6 hours. Also replacement of right you can take 1 hip tablet every 8 hours for breakthrough pain traMADol (ULTRAM) 50 Take 1 tablet 30 tablet 0 201 Active mg (50 mg) by mouth 8 tabletIndications: every 6 hours as Status post total needed for replacement of right moderate pain hip celecoxib (CELEBREX) Take 1 capsule 16 capsule 0 Active 200 mg (200 mg) by 8 capsuleIndications: mouth 2 times a Status post total day replacement of right hip acetaminophen Take 2 tablets 30 tablet 0 Active (TYLENOL) 325 mg (650 mg) by 8 tabletIndications: mouth every 4 to Status post total 6 hours as replacement of right needed for mild hip pain or moderate pain aspirin 325 MG Take 1 tablet 66 tablet 0 06/13/20 Active enteric coated (325 mg) by 8 18 tabletIndications: mouth 2 times a Status post total day for 66 doses replacement of right hip calcium carbonate Take 1 tablet 30 tablet 0 Active (TUMS) 500 MG (500 mg) by 8 chewable mouth as needed tabletIndications: for heartburn or Status post total indigestion Take replacement of right as needed hip citalopram (CELEXA) Take 1 tablet 30 tablet 0 Active 20 mg (20 mg) by mouth 8 tabletIndications: every night at Depression, bedtime unspecified depression type Probiotic Product Take 1 capsule 30 capsule 0 Active (PROBIOTIC DAILY) by mouth 1 time 8 capsuleIndications: per day Nutritional deficiency, Status post total replacement of right hip diphenhydrAMINE Take 1 capsule 5 capsule 0 05/16/20 Active (BENADRYL) 25 mg (25 mg) by mouth 8 19 capsuleIndications: 1 time per day Rash fexofenadine Take 1 tablet 7 tablet 0 05/16/20 Active (TRACIE) 180 mg (180 mg) by 8 19 tabletIndications: mouth 1 time per Rash day pravastatin Take 1 tablet 30 tablet 0 Active (PRAVACHOL) 20 mg (20 mg) by mouth 8 tabletIndications: every night at Dyslipidemia bedtime cyanocobalamin Take 1 tablet 30 tablet 0 Active (VITAMIN B-12) 500 (500 mcg) by 8 mcg mouth 1 time per tabletIndications: day Low vitamin B12 level, Nutritional deficiency ferrous sulfate (65 Take 1 tablet 30 tablet 0 Active MG FE PER 325 MG (325 mg) by 8 TABLET) 325 mg mouth on Tuesday, tabletIndications: Tuesday, and Low iron, Tuesday Nutritional deficiency bisacodyl (DULCOLAX) Take 1 tablet (5 30 tablet 0 Active 5 mg mg) by mouth 2 8 tabletIndications: times a day as Status post total needed for replacement of right constipation hip magnesium hydroxide Take 30 mL by 1 Bottle 0 Active (MILK OF MAGNESIA) mouth 2 times a 8 400 mg/5 mL oral day as needed suspensionIndication for constipation s: Status post total replacement of right hip Coenzyme Q10 (COQ10) Take 10 capsules 30 capsule 0 Active 100 MG by mouth 2 times 8 CAPSIndications: a day Dyslipidemia Glucosamine-Chondroi Take 2 tabs by 60 capsule 0 Active t-Vit C-Mn mouth two times 8 (GLUCOSAMINE-CHONDRO a day. ITIN COMPLEX) capsuleIndications: Nutritional deficiency, Status post total replacement of right hip calcium Take 1 tablet by 30 tablet 0 Active carbonate-vitamin D mouth 1 time per 8 (CALTRATE 600 + D) day 600 mg-800 unit tabletIndications: Nutritional deficiency, Status post total replacement of right hip Magnesium-Zinc Take 1 capsule 30 capsule 0 Active 133.33-5 MG by mouth 1 time 8 TABSIndications: per day Nutritional deficiency, Status post total replacement of right hip simethicone Take 1 tablet 30 each 0 Active (MYLICON, GAS-X) 80 (80 mg) by mouth 8 MG CHEWIndications: every 6 hours as Sensation of gaseous needed for abdominal fullness flatulence (for flatulence) multivitamin Take 1 tablet by 30 tablet 0 Active (CENTRUM SILVER) mouth 1 time per 8 tabletIndications: day Nutritional deficiency famotidine (PEPCID) Take 1 tablet 7 tablet 0 Active 10 mg (10 mg) by mouth 8 tabletIndications: 2 times a day Rash omeprazole Take 1 capsule 30 capsule 0 Active (PRILOSEC) 20 mg (20 mg) by mouth 8 capsuleIndications: 1 time a day in Gastroesophageal the morning reflux disease, esophagitis presence not specified oxybutynin Take 0.5 tablets 60 tablet 0 Active (DITROPAN) 5 mg (2.5 mg) by 8 tabletIndications: mouth 2 times a Overactive bladder day vitamin D3, Take 1 capsule 30 capsule 0 Active cholecalciferol, (2,000 Units) by 8 2000 unit mouth 1 time per capsuleIndications: day Nutritional deficiency calcium carbonate Take by mouth as 05/11/20 Suspended (TUMS) 500 MG needed Take as 18 chewable tablet needed citalopram (CELEXA) Take 20 mg by 05/11/20 Suspended 20 mg tablet mouth every 18 night at bedtime naproxen (NAPROSYN) Take 500 mg by 05/11/20 Suspended 500 mg tablet mouth 1 time a 18 day with breakfast omeprazole Take 20 mg by 05/11/20 Suspended (PRILOSEC) 20 mg mouth 1 time a 18 capsule day in the morning. vitamin D3, Take 2,000 Units 05/11/20 Suspended cholecalciferol, by mouth 1 time 18 2000 unit capsule per day. cyanocobalamin Take 500 mcg by 05/11/20 Suspended (VITAMIN B-12) 500 mouth 1 time per 18 mcg tablet day. Coenzyme Q10 (COQ10) Take by mouth 2 05/11/20 Suspended 100 MG CAPS times a day 18 acetaminophen Take 650 mg by 05/11/20 Suspended (TYLENOL) 325 mg mouth every 4 to 4 18 tablet 6 hours as needed ferrous sulfate (65 Take 325 mg by 05/11/20 Suspended MG FE PER 325 MG mouth on Tuesday, 6 18 TABLET) 325 mg Tuesday, and tablet Tuesday Glucosamine-Chondroi Take 2 tabs by 05/11/20 Suspended t-Vit C-Mn mouth two times 2 18 (GLUCOSAMINE-CHONDRO a day. ITIN COMPLEX) capsule multivitamin Take 1 tablet by 05/11/20 Suspended (CENTRUM SILVER) mouth 1 time per 2 18 tablet day pravastatin Take 20 mg by 05/11/20 Suspended (PRAVACHOL) 20 mg mouth every 18 tablet night at bedtime oxybutynin Take 2.5 mg by 05/11/20 Suspended (DITROPAN) 5 mg mouth 2 times a 18 tablet day Probiotic Product Take 1 capsule 05/11/20 Suspended (PROBIOTIC DAILY) by mouth 1 time 18 capsule per day MAGNESIUM-ZINC PO Take 1 tablet by 05/11/20 Suspended mouth 1 time per 18 day simethicone Take 80 mg by 05/11/20 Suspended (MYLICON, GAS-X) 80 mouth every 6 18 MG CHEW hours as needed for flatulence (for flatulence) calcium Take 1 tablet by 05/11/20 Suspended carbonate-vitamin D mouth 1 time per 18 (CALTRATE 600 + D) day 600 mg-800 unit tablet aspirin 325 MG Take 1 tablet 66 tablet 0 05/11/20 Discontinued enteric coated (325 mg) by 8 18 tabletIndications: mouth 2 times a Status post total day for 66 doses replacement of right hip acetaminophen Take 2 tablets 30 tablet 0 05/11/20 Discontinued (TYLENOL) 325 mg (650 mg) by 8 18 tabletIndications: mouth every 4 to Status post total 6 hours as replacement of right needed for mild hip pain or moderate pain calcium carbonate Take 1 tablet 90 tablet 0 05/11/20 Discontinued (TUMS) 500 MG (500 mg) by 8 18 chewable mouth as needed tabletIndications: for heartburn or Status post total indigestion Take replacement of right as needed hip citalopram (CELEXA) Take 1 tablet 30 tablet 0 05/11/20 Discontinued 20 mg (20 mg) by mouth 8 18 tabletIndications: every night at Depression, bedtime unspecified depression type Probiotic Product Take 1 capsule 30 capsule 0 05/11/20 Discontinued (PROBIOTIC DAILY) by mouth 1 time 8 18 capsuleIndications: per day Nutritional deficiency, Status post total replacement of right hip pravastatin Take 1 tablet 30 tablet 0 05/11/20 Discontinued (PRAVACHOL) 20 mg (20 mg) by mouth 8 18 tabletIndications: every night at Dyslipidemia bedtime cyanocobalamin Take 1 tablet 30 tablet 0 05/11/20 Discontinued (VITAMIN B-12) 500 (500 mcg) by 8 18 mcg mouth 1 time per tabletIndications: day Low vitamin B12 level, Nutritional deficiency ferrous sulfate (65 Take 1 tablet 30 tablet 0 05/11/20 Discontinued MG FE PER 325 MG (325 mg) by 8 18 TABLET) 325 mg mouth on Tuesday, tabletIndications: Tuesday, and Low iron, Tuesday Nutritional deficiency bisacodyl (DULCOLAX) Take 1 tablet (5 30 tablet 0 05/11/20 Discontinued 5 mg mg) by mouth 2 8 18 tabletIndications: times a day as Status post total needed for replacement of right constipation hip magnesium hydroxide Take 30 mL by 1 Bottle 0 05/11/20 Discontinued (MILK OF MAGNESIA) mouth 2 times a 8 18 400 mg/5 mL oral day as needed suspensionIndication for constipation s: Status post total replacement of right hip Coenzyme Q10 (COQ10) Take 10 capsules 30 capsule 0 05/11/20 Discontinued 100 MG by mouth 2 times 8 18 CAPSIndications: a day Dyslipidemia Glucosamine-Chondroi Take 2 tabs by 60 capsule 0 05/11/20 Discontinued t-Vit C-Mn mouth two times 8 18 (GLUCOSAMINE-CHONDRO a day. ITIN COMPLEX) capsuleIndications: Nutritional deficiency, Status post total replacement of right hip calcium Take 1 tablet by 30 tablet 0 05/11/20 Discontinued carbonate-vitamin D mouth 1 time per 8 18 (CALTRATE 600 + D) day 600 mg-800 unit tabletIndications: Nutritional deficiency, Status post total replacement of right hip Magnesium-Zinc Take 1 capsule 30 capsule 0 05/11/20 Discontinued 133.33-5 MG by mouth 1 time 8 18 TABSIndications: per day Nutritional deficiency, Status post total replacement of right hip simethicone Take 1 tablet 30 each 0 05/11/20 Discontinued (MYLICON, GAS-X) 80 (80 mg) by mouth 8 18 MG CHEWIndications: every 6 hours as Sensation of gaseous needed for abdominal fullness flatulence (for flatulence) multivitamin Take 1 tablet by 30 tablet 0 05/11/20 Discontinued (CENTRUM SILVER) mouth 1 time per 8 18 tabletIndications: day Nutritional deficiency omeprazole Take 1 capsule 30 capsule 0 05/11/20 Discontinued (PRILOSEC) 20 mg (20 mg) by mouth 8 18 capsuleIndications: 1 time a day in Gastroesophageal the morning reflux disease, esophagitis presence not specified oxybutynin Take 0.5 tablets 60 tablet 0 05/11/20 Discontinued (DITROPAN) 5 mg (2.5 mg) by 8 18 tabletIndications: mouth 2 times a Overactive bladder day vitamin D3, Take 1 capsule 30 capsule 0 05/11/20 Discontinued cholecalciferol, (2,000 Units) by 8 18 2000 unit mouth 1 time per capsuleIndications: day Nutritional deficiency diphenhydrAMINE Take 1 capsule 5 capsule 0 05/11/20 Discontinued (BENADRYL) 25 mg (25 mg) by mouth 8 18 capsuleIndications: 1 time per day Rash fexofenadine Take 1 tablet 7 tablet 0 05/11/20 Discontinued (TRACIE) 180 mg (180 mg) by 8 18 tabletIndications: mouth 1 time per Rash day famotidine (PEPCID) Take 1 tablet 7 tablet 0 05/11/20 Discontinued 10 mg (10 mg) by mouth 8 18 tabletIndications: 2 times a day Rash as of this encounter Active Problems Problem Noted Date Rash 05/11/2018 S/P total hip arthroplasty 05/08/2018 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 [place] of both eyes 10/16/2017 Posterior vitreous detachment of both eyes 10/16/2017 Regular astigmatism of both eyes 02/09/2017 Glaucoma suspect 02/06/2015 Closed fracture of proximal end of left humerus with routine healing 2014 Corneal scar and opacity - Right 05/30/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, choroidal - Right 05/30/2013 Screening for malignant neoplasm of cervix 07/11/2009 Myalgia and myositis 02/15/2008 Esophageal reflux 11/30/2006 Asymptomatic varicose veins as of this encounter Resolved Problems Problem Noted Date Resolved Date Blepharitis of upper eyelids of both eyes 10/16/2017 03/09/2018 Cataract, senile - Both 05/30/2013 12/08/2017 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 02/06/2015 Hyperopia with astigmatism - Both 05/30/2013 02/09/2017 as of this encounter Immunizations Name Dates Previously Given Next Due Pneumococcal Polysaccharide PPSV23 04/14/2010 Td(adult)preservative free 12/06/2005 Zoster Live(Zostavax) 06/10/2009 as of this encounter Social History Tobacco Use Types Packs/Day Years Used Date Never Smoker Smokeless Tobacco: Never Used Alcohol Use Drinks/Week oz/Week Comments No 0 Standard drinks or equivalent 0.0 Sex Assigned at Date Recorded Not on file as of this encounter Last Filed Vital Signs Vital Sign Reading Time Taken Blood Pressure 111/64 05/11/2018 7:53 AM CDT Pulse 83 05/11/2018 7:53 AM CDT Temperature 36.1 C (97 F) 05/11/2018 7:53 AM CDT Respiratory Rate 16 05/11/2018 7:53 AM CDT Oxygen Saturation 98% 05/11/2018 7:53 AM CDT Inhaled Oxygen Concentration - - Weight 106 kg (233 lb 11 oz) 05/08/2018 9:00 AM CDT Height 172.7 cm (5' 7.99") 05/08/2018 9:00 AM CDT Body Mass Index 35.54 05/08/2018 9:00 AM CDT in this encounter Functional Status Functional Status Response Date of Assessment Is the person deaf or does he/she have serious difficulty No 04/27/2018 hearing? Is this person blind or does he/she have difficulty No 04/27/2018 seeing even when wearing glasses? Do you have difficulty with walking, balance, climbing No 05/08/2018 stairs, or had a fall in the last 3 months? Does the patient have difficulty dressing or bathing? No 05/08/2018 Because of a physical, mental, or emotional condition; No 05/08/2018 does this person have difficulty doing errands alone such as visiting a doctor's office or shopping? Cognitive Status Response Date of Assessment Because of a physical, mental, or emotional condition; No 05/08/2018 does this person have serious difficulty concentrating, remembering, or making decisions? as of this encounter Discharge Summaries Omar Ely MD - 05/11/2018 11:27 AM CDTFormatting of this note may be different from the original. Hospital Discharge Summary Attending Physician: Uriah Welch MD Attending Physician Specialty: Orthopedic Surgery Admit Date: 05/08/2018 Discharge Date: 05/11/18 Primary Care Physician: ISIDORO Will Discharge Diagnoses Active Problems: S/P total hip arthroplasty Rash Resolved Problems: * No resolved hospital problems. * Hospital Course 77-year-old status post right total hip arthroplasty on 05/08/2018 Following is patient's subsequent hospitalization course: Primary osteoarthritis of right hip status post right total hip arthroplasty Management per primary orthopedic surgery team. Continue bowel and pain management regimen. DVT prophylaxis: Aspirin 325 mg 2 times a day, total 70 doses. Received perioperative IV Ancef. PT, OT on board. [facility]. Patient was cleared by orthopedic surgery for discharge. Generalized rash He developed over the last 24 hours, mainly in the groin and the buttock but also involving the axilla, anterior abdominal wall, below the breasts bilaterally and few of them in the back. The groin and the buttock rash appears more like contact dermatitis but the generalized presentation is more consistent with the allergy response. No new medication has been started over the last 24 hours. There is a possibility she could've reacted to her pain medications. She is hemodynamically stable. She has no shortness of breath, chest pain, wheezing, lip swelling or any change in voice. She has no difficulty swallowing her food. Overall there is no symptoms to suggest any anaphylaxis. Vitals have remained stable. We will treat this as a possible drug rash. However, we are not sure as to what drugs she could have reacted. Also we're not sure if this is a food allergy For now we will start her on empiric treatment with Benadryl 25 mg daily, Tracie 180 mg daily. We will also put her on H2 germania Pepcid 20 mg daily for the next 7 days. If her rash does not improve then we will have no other option but to stop her pain medications including Celebrex, tramadol, oxycodone as these are new drugs which was started recently. Patient will need to be watched for any hemodynamic instability or worsening of rash in that case patient will need to be brought back to the emergency room. Plan of care explained to patient. Hyperlipidemia, continue Pravachol. Mood disorder, continue Celexa. GERD, continue present. Full code. LabTests Pending at Discharge Follow-Up Scheduled Contact information for follow-up Vero Ferrera PA Specialty: ISIDORO - Orthopedic Surgery [facility] [address] [facility] [address] Instructions: Follow up incision check May 18, 2:15 PM. Uriah Welch MD Specialty: Orthopedic Surgery [facility] [address] [facility] [address] Instructions: Post surgical follow up June 14, 1:15 PM. [facility], [facility] [address] [facility] [address] Instructions: staff to provide therapy and cares per protocol Preliminary Discharge Medications This list of medications is preliminary and tentative. Please see the After Visit Summary for the final and accurate medication list. Discharge Medication List START taking these medications START: aspirin 325 MG enteric coated tablet Dose: 325 mg Take 1 tablet (325 mg) by mouth 2 times a day for 66 doses START: bisacodyl 5 mg tablet Dose: 5 mg Take 1 tablet (5 mg) by mouth 2 times a day as needed for constipation START: celecoxib 200 mg capsule Commonly known as: celeBREX Dose: 200 mg Take 1 capsule (200 mg) by mouth 2 times a day START: diphenhydrAMINE 25 mg capsule Commonly known as: BENADRYL Dose: 25 mg Take 1 capsule (25 mg) by mouth 1 time per day START: famotidine 10 mg tablet Commonly known as: PEPCID Dose: 10 mg Take 1 tablet (10 mg) by mouth 2 times a day START: fexofenadine 180 mg tablet Commonly known as: TRACIE Dose: 1 tablet Take 1 tablet (180 mg) by mouth 1 time per day START: magnesium hydroxide 400 mg/5 mL oral suspension Commonly known as: MILK OF MAGNESIA Dose: 30 mL Take 30 mL by mouth 2 times a day as needed for constipation START: oxyCODONE 5 mg tablet (immediate release) Commonly known as: OXY-IR Take 1 tablets for severe pain if needed, every 6 hours. Also you can take 1 tablet every 8 hours for breakthrough pain START: traMADol 50 mg tablet Commonly known as: ULTRAM Dose: 50 mg Take 1 tablet (50 mg) by mouth every 6 hours as needed for moderate pain CONTINUE taking these medications which have CHANGED CONTINUE: acetaminophen 325 mg tablet Commonly known as: TYLENOL Dose: 650 mg Take 2 tablets (650 mg) by mouth every 4 to 6 hours as needed for mild pain or moderate pain What changed: reasons to take this CONTINUE: calcium carbonate 500 MG chewable tablet Commonly known as: TUMS Dose: 500 mg Take 1 tablet (500 mg) by mouth as needed for heartburn or indigestion Take as needed What changed: - how much to take - reasons to take this CONTINUE: CoQ10 100 MG Caps Dose: 10 capsule Take 10 capsules by mouth 2 times a day What changed: how much to take CONTINUE: Magnesium-Zinc 133.33-5 MG Tabs Dose: 1 capsule Take 1 capsule by mouth 1 time per day What changed: - medication strength - how much to take CONTINUE taking these medications which have NOT CHANGED CONTINUE: calcium carbonate-vitamin D 600 mg-800 unit tablet Commonly known as: CALTRATE 600 + D Dose: 1 tablet Take 1 tablet by mouth 1 time per day CONTINUE: citalopram 20 mg tablet Commonly known as: celeXA Dose: 20 mg Take 1 tablet (20 mg) by mouth every night at bedtime CONTINUE: cyanocobalamin 500 mcg tablet Commonly known as: Vitamin B-12 Dose: 500 mcg Take 1 tablet (500 mcg) by mouth 1 time per day CONTINUE: ferrous sulfate 325 mg tablet Commonly known as: 65 mg FE per 325 mg tablet Dose: 325 mg Take 1 tablet (325 mg) by mouth on Tuesday, Tuesday, and Tuesday Start taking on: 05/12/2018 CONTINUE: glucosamine-chondroitin complex capsule Take 2 tabs by mouth two times a day. CONTINUE: multivitamin tablet Dose: 1 tablet Take 1 tablet by mouth 1 time per day CONTINUE: omeprazole 20 mg capsule Commonly known as: priLOSEC Dose: 20 mg Take 1 capsule (20 mg) by mouth 1 time a day in the morning CONTINUE: oxybutynin 5 mg tablet Commonly known as: DITROPAN Dose: 2.5 mg Take 0.5 tablets (2.5 mg) by mouth 2 times a day CONTINUE: pravastatin 20 mg tablet Commonly known as: PRAVACHOL Dose: 20 mg Take 1 tablet (20 mg) by mouth every night at bedtime CONTINUE: probiotic daily capsule Dose: 1 capsule Take 1 capsule by mouth 1 time per day CONTINUE: simethicone 80 MG Chew Commonly known as: MYLICON, GAS-X Dose: 80 mg Take 1 tablet (80 mg) by mouth every 6 hours as needed for flatulence (for flatulence) CONTINUE: vitamin D3 (cholecalciferol) 2000 unit capsule Dose: 2000 Units Take 1 capsule (2,000 Units) by mouth 1 time per day STOP taking these medications STOP: naproxen 500 mg tablet Commonly known as: NAPROSYN Where to Get Your Medications These medications were sent to [facility] [place] [address] [facility] [address] [address] [facility] [place] [address] acetaminophen 325 mg tablet aspirin 325 MG enteric coated tablet bisacodyl 5 mg tablet calcium carbonate 500 MG chewable tablet calcium carbonate-vitamin D 600 mg-800 unit tablet celecoxib 200 mg capsule citalopram 20 mg tablet CoQ10 100 MG Caps cyanocobalamin 500 mcg tablet diphenhydrAMINE 25 mg capsule famotidine 10 mg tablet ferrous sulfate 325 mg tablet fexofenadine 180 mg tablet glucosamine-chondroitin complex capsule magnesium hydroxide 400 mg/5 mL oral suspension Magnesium-Zinc 133.33-5 MG Tabs multivitamin tablet omeprazole 20 mg capsule oxybutynin 5 mg tablet oxyCODONE 5 mg tablet (immediate release) pravastatin 20 mg tablet probiotic daily capsule simethicone 80 MG Chew traMADol 50 mg tablet vitamin D3 (cholecalciferol) 2000 unit capsule Review of systems Constitutional: No fever or chills Neurological: No focal weakness, altered sensation, headache, incontinence. Chest: No shortness of breath or wheezing. Cardiovascular: No chest pain. Extremity is: No leg swelling. Abdomen: No abdominal pain, nausea, vomiting. Genitourinary: No voiding difficulties. Musculoskeletal: Pain at the operative site in the right hip region present, improved Skin: Rash in the groin, buttock, arm pits , below the breast ,abdominal wall, and the back Physical Exam Current Vital Signs Temp: 97 F (36.1 C) BP: 111/64 Pulse: 83 O2 Device: Room Air O2 Flow Rate (L/min): 1 l/min Resp: 16 Pain Ratin (out of 10) Weight: 106 kg (233 lb 11 oz) SpO2: 98 % Constitutional: Not in any acute distress. Neurological: Alert, awake, oriented 3. Chest clear to auscultation and time. Cardiovascular: RRR, S1, S2 heard. Extremity is: Negative for pedal edema. Abdomen: Soft, nontender, no distention, no guarding or rigidity. Bowel sounds normal. Musculoskeletal: Right Hip - Dressing intact, no soakage. Compartments soft,non tender. Homans sign negative Distal Left leg exam : CMS intact Skin: Patient has scattered macular rash or being the groins, buttock region, left anterior abdominal wall and also below the breasts bilaterally, bilateral legs ala and also a few scattered ones in the back. They're itchy. Procedures Performed and Findings All procedures during admission Procedure(s): RIGHT TOTAL HIP ARTHROPLASTY Consultations Obtained SPIRITUAL CARE REFERRAL INTERNAL MEDICINE CONSULT CASE MANAGEMENT CONSULT Discharge Disposition ADULT Discharge Planning: Swingbed, Skilled (20, 19) Instructions for after discharge Contact your doctor if you develop a temperature greater than 101 degrees Contact your doctor if you experience increased pain, numbness, or tingling Contact your doctor if you have any questions in the first week Contact your doctor if you notice any drainage from your incision after 48 hours Contact your doctor if you notice any redness or swelling around your incision ELEVATE EXTREMITY Elevate right lower extremity for 30 minutes 4 times per day and as needed for swelling. FOLLOW TOTAL HIP PRECAUTIONS UNTIL RETURN TO CLINIC Do not bend at the hip more than 90 degrees and do not cross your legs 6 weeks. ICE TO AFFECTED AREA Ice to right hip: cold packs 5 times per day and as needed for swelling and pain. Alternate 20 minutes on and 20 minutes off. Assess skin every 2 hrs. Do not apply directly on skin. If you have questions or concerns, please call your orthopedic surgeon at the clinic LEAVE OCCLUSIVE DRESSING INTACT FOR : Change dressing 05/16/18 with occlusive dressing, then change every 5 days with occlusive dressing. LIFTING RESTRICTIONS NO lifting. MAY NOT RETURN TO WORK UNTIL AFTER FOLLOW-UP APPOINTMENT MAY SHOWER - COVER INCISION WITH WATER PROOF DRESSING SO IT DOESN'T GET WET. NO DRIVING No Driving until follow up with your health care provider. NO TUB BATH UNTIL DIRECTED NO USE OF ALCOHOL OR NON PRESCRIPTION DRUGS Notify provider with any questions or concerns Other activity instructions Activity, lifting instruction, driving instruction as per Orthopedic surgery team. Please call 911 and seek immediate emergency care if you experience any chest pain or shortness of breath or if you are coughing up blood Resume home diet JOSSY STOCKING ON EVERY DAY 1) May take stocking off at night 2) Wear stockings until follow-up appointment WALK FREQUENTLY AND GRADUALLY INCREASE THE DISTANCE YOU ARE WALKING WALK WITH ASSISTIVE DEVICE Walker for assistance. WEIGHT BEARING STATUS - TOLERATED Medical Decision Making A total of 36 minutes were spent on discharge coordination. in this encounter Discharge Instructions Omar Ely MD - 05/11/2018 PATIENT NEEDS MONITORING OF HER RASH Monitor her rash in the groin and and under her arm. Patient will need to be watched for any hemodynamic instability or worsening of rash in that case patient will need to be brought back to the emergency room.If her rash does not improve then we will have no other option but to stop her pain medications including Celebrex, tramadol, oxycodone which arenew medications. If rash is not improving please discuss with provider/on-call providerin this encounter Progress Notes Vero Ferrera PA - 05/11/2018 8:43 AM CDTFormatting of this note may be different from the original. ORTHO progress note. Lasha Tate is a 77yr old female admitted on 05/08/2018 8:21 AM 3 Days Post-Op, patient of Uriah Welch MD Status Post: Procedure(s): RIGHT TOTAL HIP ARTHROPLASTY Patient doing better today, good pain control with current meds. She is complaining of a rash thismorning. She denies nausea today. Lab Results Component Value Date HEMOGLOBIN 10.1 (L) 05/10/2018 Current Vitals: BP 90/51 | Pulse 72 | Temp 98.7 F (37.1 C) | Resp 16 | Ht 1.727 m (5' 7.99") | Wt 106 kg (233 lb 11 oz) | SpO2 97% | BMI 35.54 kg/m2 Dist NVI. Dressing intact. She has a heat type rash in her groin, under breasts and across her back. She is getting benadryl and using cream. Plan: Continue cares, PT. Ok to DC to SNF. ED Rivers Kaushik, MD - 05/10/2018 12:27 PM CDTFormatting of this note may be different from the original. 77-year-old status post right total hip arthroplasty on 05/08/2018 Interval history Vital stable, afebrile. Working with PT, OT Review of systems Constitutional: No fever or chills Neurological: No focal weakness, altered sensation, headache, incontinence. Chest: No shortness of breath or wheezing. Cardiovascular: No chest pain. Extremity is: No leg swelling. Abdomen: No abdominal pain, nausea, vomiting. Genitourinary: No voiding difficulties. Musculoskeletal: Pain at the operative site in the right hip region present, improved Physical examination Current Vital Signs Temp: 97.9 F (36.6 C) BP: 112/61 Pulse: 74 O2 Device: Room Air O2 Flow Rate (L/min): 1 l/min Resp: 16 Pain Ratin (out of 10) Weight: 106 kg (233 lb 11 oz) SpO2: 95 % Constitutional: Not in any acute distress. Neurological: Alert, awake, oriented 3. Chest clear to auscultation and time. Cardiovascular: RRR, S1, S2 heard. Extremity is: Negative for pedal edema. Abdomen: Soft, nontender, no distention, no guarding or rigidity. Bowel sounds normal. Musculoskeletal: Right Hip - Dressing intact, no soakage. Compartments soft,non tender. Homans sign negative Distal Left leg exam : CMS intact Medications reviewed Pertinent test results reviewed Assessment and plan Primary osteoarthritis of right hip status post right total hip arthroplasty Management per primary orthopedic surgery team. Continue bowel and pain management regimen. DVT prophylaxis: Aspirin 325 mg 2 times a day, total 70 doses. Received perioperative IV Ancef. PT, OT on board. Plan is to d/c to SNF tomorrow Hyperlipidemia, continue Pravachol. Mood disorder, continue Celexa. GERD, continue present. Full code. Vero Ferrera PA - 05/10/2018 10:19 AM CDTFormatting of this note may be different from the original. ORTHO progress note. Lasha Tate is a 77yr old female admitted on 05/08/2018 8:21 AM 2 Days Post-Op, patient of Uriah Welch MD Status Post: Procedure(s): RIGHT TOTAL HIP ARTHROPLASTY Patient doing ok, good pain control with current meds. She has had a little nausea off and on today. Lab Results Component Value Date HEMOGLOBIN 10.1 (L) 05/10/2018 Current Vitals: BP 112/61 | Pulse 74 | Temp 97.9 F (36.6 C) | Resp 16 | Ht 1.727 m (5' 7.99") | Wt 106 kg (233 lb 11 oz) | SpO2 95% | BMI 35.54 kg/m2 Dist NVI. Dressing intact. Plan: Continue cares, PT. Planning on [facility] tomorrow. CM following. ED Rivers Kaushik, MD - 05/09/2018 2:50 PM CDTFormatting of this note may be different from the original. 77-year-old status post right total hip arthroplasty on 05/08/2018 Interval history Vital stable, afebrile. Working with PT, OT Review of systems Constitutional: No fever or chills Neurological: No focal weakness, altered sensation, headache, incontinence. Chest: No shortness of breath or wheezing. Cardiovascular: No chest pain. Extremity is: No leg swelling. Abdomen: No abdominal pain, nausea, vomiting. Genitourinary: No voiding difficulties. Musculoskeletal: Pain at the operative site in the right hip region present. Physical examination Current Vital Signs Temp: 98.3 F (36.8 C) BP: 112/52 Pulse: 78 O2 Device: Room Air O2 Flow Rate (L/min): 1 l/min Resp: 16 Pain Ratin (out of 10) Weight: 106 kg (233 lb 11 oz) SpO2: 98 % Constitutional: Not in any acute distress. Neurological: Alert, awake, oriented 3. Chest clear to auscultation and time. Cardiovascular: RRR, S1, S2 heard. Extremity is: Negative for pedal edema. Abdomen: Soft, nontender, no distention, no guarding or rigidity. Bowel sounds normal. Musculoskeletal: Right Hip - Dressing intact, no soakage. Compartments soft,non tender. Homans sign negative Distal Left leg exam : CMS intact Medications reviewed Pertinent test results reviewed Assessment and plan Primary osteoarthritis of right hip status post right total hip arthroplasty Management per primary orthopedic surgery team. Continue bowel and pain management regimen. DVT prophylaxis: Aspirin 325 mg 2 times a day, total 70 doses. Received perioperative IV Ancef. PT, OT on board. Hyperlipidemia, continue Pravachol. Mood disorder, continue Celexa. GERD, continue present. Full code. Castro Henao PA-C - 05/09/2018 8:13 AM CDTFormatting of this note may be different from the original. Ortho Progress Note Lasha Tate is a 77yr old female 1 Day Post-Op, Status Post Procedure(s): RIGHT TOTAL HIP ARTHROPLASTY. BP 92/69 | Pulse 65 | Temp 98.1 F (36.7 C) | Resp 16 | Ht 1.727 m (5' 7.99" ) | Wt 106 kg (233 lb11 oz) | SpO2 97% | BMI 35.54 kg/m2 Lab Results Component Value Date HEMOGLOBIN 10.2 (L) 05/09/2018 Patient doing ok, complains of intermittent pain. The patient denies nausea. The dressing/incision is clean With none drainage. Compartments soft and non-tender. Distal NV intact right lower extremity. Plan: Continue cares. Ambulate. TCU in [place] in 2 days.Michelle Mejia, PHARM D - 05/08/2018 9:24 AM CDT05/08/2018 09:24 - Patient was seen by pharmacy med reconciliation team. HOME MEDICATIONS have been reconciled and updated to match the patient's home usage. Taken this morning: Omeprazole, oxybutynin. All vitamins/OTCs were stopped 2 and a half weeks ago. Michelle Mejia, PHARM D. Uriah Welch MD - 05/08/2018 9:22 AM CDTH&P Updates and Indication for Care/Procedure: I have examined the patient, reviewed the H&P and no changes to the patient's condition. I have explained the risks, benefits and indications for the procedure, answered questions and obtained the appropriate consent to proceed. ASA post-op.in this encounter Plan of Treatment Date Type Specialty Care Team Description 05/18/2018 Office Visit Orthopedics Vero Ferrera PA [address] [address] [phone] 06/14/2018 Office Visit Orthopedics Uriah Welch MD [address] [place] [address] [phone] Name Priority Associated Diagnoses Date/Time TISSUE EXAM Routine Primary osteoarthritis of right hip 05/08/2018 12:50 PM CDT Name Priority Associated Diagnoses Order Schedule TISSUE EXAM Routine Primary osteoarthritis of right ONCE for 1 Occurrences hip starting 05/08/2018, 1 completed Health Maintenance Due Date Last Done Comments Zoster Vaccine (2 of 3 - Mixed Series 08/10/2009 06/10/2009 (ZVL first) - RZV,Shingrix) Pneumococcal 65yr+ Low/Med Risk (2 of 04/14/2011 04/14/2010 2 - PCV13) Tetanus Vaccine 12/06/2015 12/06/2005 Influenza Vaccine (#1) 2018 Diabetes Screening 05/10/2021 05/10/2018, 05/09/2018 DEXA/Heel Scan 04/24/2027 04/24/2012, 09/10/2003 (Previously completed) as of this encounter Implants Implanted Type Area De Alcholizer Device Expiration Model / Identifier Date Serial / Lot Iol Pre-Load Tecnis 24.5d N [id number] 1 - [id number] Left: [employer] & 06/13/2020 [id number] / Implanted: Qty: 1 on 11/30/2017 by Uriah Malcolm MD [employer] [id number] / CHAMBER N/A Iol Pre-Load Tecnis 24.5d N [id number] Ea1 - [id number] Right: [employer] & 09/30/2020 [id number] / Implanted: Qty: 1 on 12/07/2017 by Uriah Malcolm MD [employer] [id number] / CHAMBER N/A Hip Shell G7 Pps 3hl F 56mm N [id number] Ea1 - Sn/A Right: HIP KAYCE 05/2028 [id number] / Implanted: Qty: 1 on 05/08/2018 by Uriah Welch MD N/A / [id number] Hip Lnr E1 Pe Neut Szf 36mm N [id number] Ea1 - Sn/A Right: HIP KAYCE [id number] / Implanted: Qty: 1 on 05/08/2018 by Uriah Welch MD N/A / [id number] One Of A Kind Implant - Sn/A Right: HIP 02/04/2025 [id number] / Implanted: Qty: 1 on 05/08/2018 by Uriah Welch MD N/A / [id number] Hip Hd G7 Type 1 Mtl 36mm +3 N [id number] Ea1 - Sn/A Right: HIP KAYCE [id number] / Implanted: Qty: 1 on 05/08/2018 by Uriah Welch MD N/A / [id number] as of this encounter Procedures Procedure Name Priority Date/Time Associated Comments Diagnosis HEMOGLOBIN Routine 05/10/2018 5:56 AM Results for this CDT procedure are in the results section. BASIC METABOLIC Routine 05/10/2018 5:56 AM Results for this PANEL CDT procedure are in the results section. HEMOGLOBIN Routine 05/09/2018 5:47 AM Results for this CDT procedure are in the results section. BASIC METABOLIC Routine 05/09/2018 5:47 AM Results for this PANEL CDT procedure are in the results section. in this encounter Results BASIC METABOLIC PANEL (05/10/2018 5:56 AM) Component Value Ref Range Glucose 117 (H) 70 - 100 mg/dL BUN 16 6 - 22 mg/dL Creatinine 0.76 0.60 - 1.10 mg/dL BUN/Creatinine Ratio 21.1 10.0 - 25.0 Sodium 136 135 - 145 meq/L Potassium 3.9 3.5 - 5.3 meq/L Chloride 105 99 - 110 meq/L CO2 23 20 - 29 meq/L Anion Gap with K 12 6 - 20 meq/L Calcium 8.9 8.5 - 10.5 mg/dL Age 77 Years eGFR Non- 74 >=60 mL/min/1.73m2 eGFR 90 >=60 mL/min/1.73m2 Specimen Performing Laboratory Blood [facility] [address] [place] [address] HEMOGLOBIN (05/10/2018 5:56 AM) Component Value Ref Range Hemoglobin 10.1 (L) 11.5 - 15.8 g/dL Specimen Performing Laboratory Blood [facility] [address] [place] [address] BASIC METABOLIC PANEL (05/09/2018 5:47 AM) Component Value Ref Range Glucose 123 (H) 70 - 100 mg/dL BUN 17 6 - 22 mg/dL Creatinine 0.78 0.60 - 1.10 mg/dL BUN/Creatinine Ratio 21.8 10.0 - 25.0 Sodium 135 135 - 145 meq/L Potassium 4.6 3.5 - 5.3 meq/L Chloride 106 99 - 110 meq/L CO2 21 20 - 29 meq/L Anion Gap with K 13 6 - 20 meq/L Calcium 8.4 (L) 8.5 - 10.5 mg/dL Age 77 Years eGFR Non- 72 >=60 mL/min/1.73m2 eGFR 87 >=60 mL/min/1.73m2 Specimen Performing Laboratory Blood [facility] [address] [place], [place] [address] HEMOGLOBIN (05/09/2018 5:47 AM) Component Value Ref Range Hemoglobin 10.2 (L) 11.5 - 15.8 g/dL Specimen Performing Laboratory Blood [facility] [address] [place], [place] [phone] XRAY PELVIS WITH HIP 1 VIEW RT (05/08/2018 2:42 PM) Specimen Performing Laboratory PS360 Narrative Patient Name: LASHA TATE Date of :1940 Procedure: XRAY PELVIS WITH HIP 1 VIEW RT Date of Service: 05/08/2018 EXAM: XRAY PELVIS WITH HIP 1 VIEW RT INDICATION:postop right total hip COMPARISON(S): 03/07/2018 FINDINGS: Metallic prosthetic elements acetabular regions, proximal to mid femoral regions, grossly intact, nondisplaced, no abnormal peripheral lucency, stable left, new right. Mild subcutaneous emphysema superior lateral, inferior medial right hip more consistent with postsurgical change new. No acute fracture, dislocation, destructive change or joint effusion otherwise. No other interval change. IMPRESSION: Status post bilateral total hip arthroplasty with no evidence of loosening, infection or acute bony pathology, stable left, new right. Finalized by: Vasu Gasca MD on 05/08/2018 3:15 PM Patient/Procedure Information: [facility] MRN/GUILLERMO: [id number] Order Number: [id number] Accession Number: [id number] Ordering Provider: CASTRO HENAO Authorizing Provider: CASTRO HENAO Procedure Note Interface, Radiantres - 05/08/2018 3:17 PM CDT Patient Name: LASHA TATE Date of : 1940 Procedure: XRAY PELVIS WITH HIP 1 VIEW RT Date of Service: 05/08/2018 EXAM: XRAY PELVIS WITH HIP 1 VIEW RT INDICATION:postop right total hip COMPARISON(S): 03/07/2018 FINDINGS: Metallic prosthetic elements acetabular regions, proximal to mid femoral regions, grossly intact, nondisplaced, no abnormal peripheral lucency, stable left, new right. Mild subcutaneous emphysema superior lateral, inferior medial right hip more consistent with postsurgical change new. No acute fracture, dislocation, destructive change or joint effusion otherwise. No other interval change. IMPRESSION: Status post bilateral total hip arthroplasty with no evidence of loosening, infection or acute bony pathology, stable left, new right. Finalized by: Vasu Gasca MD on 05/08/2018 3:15 PM Patient/Procedure Information: [facility] MRN/GUILLERMO: [id number] Order Number: [id number] Accession Number: [id number] Ordering Provider: CASTRO HENAO Authorizing Provider: CASTRO HENAO in this encounter Visit Diagnoses Diagnosis Depression, unspecified depression type - Primary Primary osteoarthritis of right hip Primary localized osteoarthrosis, pelvic region and thigh Dyslipidemia Other and unspecified hyperlipidemia Low vitamin B12 level Other B-complex deficiencies Low iron Iron deficiency anemia, unspecified Sensation of gaseous abdominal fullness Flatulence, eructation, and gas pain Nutritional deficiency Unspecified nutritional deficiency Overactive bladder Hypertonicity of bladder Gastroesophageal reflux disease, esophagitis presence not specified Status post total replacement of right hip Rash Rash and other nonspecific skin eruption in this encounter Administered Medications Medication Order MAR Action Action Date Dose Rate Site acetaminophen (TYLENOL) tablet 650 mg Given 05/10/2018 23:37 CDT 650 mg 650 mg, Oral, Every six hours, First dose on Tue05/08/18 at 1800, Until Discontinued, Post - Op, Alternate with tramadol (ULTRAM); Total dose of acetaminophen from all acetaminophen containing products should not exceed 4 grams (4000 mg) per day. Given 05/11/2018 06:22 CDT 650 mg Given 05/11/2018 12:27 CDT 650 mg aspirin (ECOTRIN) enteric coated tablet 325 mg Given 05/10/2018 08:52 CDT 325 mg 325 mg, Oral, Two times a day, First dose on Tue05/08/18 at 2100, Until Discontinued, Post - Op, Tablet should be swallowed whole and not be divided, crushed or chewed. Given 05/10/2018 20:49 CDT 325 mg Given 05/11/2018 08:46 CDT 325 mg calcium carbonate (TUMS) chewable tablet 500 mg Given 05/09/2018 21:12 CDT 500 mg 500 mg, Oral, Every twelve hours prn, Starting Tue05/08/18 at 1811, Until Discontinued, heartburn celecoxib (celeBREX) capsule 200 mg Given 05/10/2018 08:52 CDT 200 mg 200 mg, Oral, Two times a day, 20 doses, First dose on Tue05/09/18 at 2100, Last dose on Tue05/19/18 at 0900, Post - Op Given 05/10/2018 20:48 CDT 200 mg Given 05/11/2018 08:46 CDT 200 mg citalopram (celeXA) tablet 20 mg Given 05/08/2018 20:29 CDT 20 mg 20 mg, Oral, Bedtime, First dose on Tue05/08/18 at 2100, Until Discontinued Given 05/09/2018 21:11 CDT 20 mg Given 05/10/2018 20:48 CDT 20 mg fentaNYL 100 mcg/2 mL preservative free injection Given 05/09/2018 00:12 CDT 50 mcg solution 50 mcg 50 mcg, IV, Every thirty minutes prn, Starting Tue05/08/18 at 1610, Until Discontinued, severe pain, 2 mL, Post - Op, If pain unrelieved by oxycodone ferrous sulfate (65 mg FE per 325 mg tablet) Given 05/10/2018 08:53 CDT 325 mg tablet 325 mg 325 mg, Oral, One time a day Tue, First dose on Tue05/10/18 at 0900, Until Discontinued omeprazole (priLOSEC) capsule 20 mg Given 05/09/2018 06:12 CDT 20 mg 20 mg, Oral, Every morning, First dose on Tue05/09/18 at 0700, Until Discontinued, Swallow cap whole. Do not crush, chew or open. Given 05/10/2018 06:01 CDT 20 mg Given 05/11/2018 06:23 CDT 20 mg ondansetron (ZOFRAN) injection solution 4 mg Given 05/09/2018 13:28 CDT 4 mg 4 mg, IV, Every four hours prn, Starting Tue05/08/18 at 1421, Until Discontinued, nausea, vomiting, 2 mL, PACU - Continue Post-Op, Use first for nausea. If ineffective after 15 minutes use promethazine. oxybutynin (DITROPAN) tablet 2.5 mg Given 05/11/2018 09:50 CDT 2.5 mg 2.5 mg, Oral, Two times a day, First dose on Marichuy 05/11/18 at 0945, Until Discontinued, Oxybutynin 2.5 mg half-tab=1/2 of 5 mg tablet. oxyCODONE (OXY-IR) tablet 5-10 mg Given 05/09/2018 09:51 CDT 5 mg 5-10 mg, Oral, Every four hours prn, Starting Tue05/08/18 at 1610, Until Discontinued, moderate pain, severe pain, Post - Op, For patients with moderate pain, pain rating of 4-6, give Oxycodone 5mg PO every 4 hours PRN. For patients with severe pain, pain rating of 7-10, give Oxycodone 10mg PO every 4 hours PRN. Given 05/09/2018 14:03 CDT 10 mg Given 05/11/2018 07:53 CDT 5 mg polyethylene glycol (MIRALAX) packet 1 packet Given 05/09/2018 08:52 CDT 1 packet 1 packet, Oral, Daily, First dose on Tue05/09/18 at 0900, Until Discontinued, Post - Op, Hold if 2 loose stools occur in the last 24 hours. Given 05/10/2018 08:53 CDT 1 packet Given 05/11/2018 08:45 CDT 1 packet pravastatin (PRAVACHOL) tablet 20 mg Given 05/08/2018 20:31 CDT 20 mg 20 mg, Oral, Bedtime, First dose on Tue05/08/18 at 2100, Until Discontinued Given 05/09/2018 21:11 CDT 20 mg Given 05/10/2018 20:48 CDT 20 mg senna-docusate sodium (SENOKOT-S;PERICOLACE) Given 05/10/2018 08:53 CDT 1 tablet tablet 1 tablet 1 tablet, Oral, Two times a day, First dose on Tue05/08/18 at 2100, Until Discontinued, Post - Op, Hold if 2 loose stools occur in the last 24 hours. Given 05/10/2018 20:48 CDT 1 tablet Given 05/11/2018 08:46 CDT 1 tablet sodium chloride 0.9% IV solution New Bag 05/08/2018 16:15 CDT 75 mL/hr IV, at 75 mL/hr, Continuous, Starting Tue05/08/18 at 1615, Until Discontinued, 1,000 mL, Post - Op New Bag 05/09/2018 03:59 CDT 75 mL/hr sodium chloride 0.9% prefilled 10 mL syringe Given 05/10/2018 08:55 CDT 3 mL (Materials Management Item) 1-3 mL 1-3 mL, IV, Daily, First dose on Tue05/09/18 at 0900, Until Discontinued, 10 mL, Post - Op, Flush with 1-3 mL normal saline at least every 24 hours. traMADol (ULTRAM) tablet 50 mg Given 05/10/2018 20:49 CDT 50 mg 50 mg, Oral, Every six hours, First dose on Tue05/08/18 at 1615, Until Discontinued, Post - Op, Alternate with acetaminophen (TYLENOL). Recommended maximum daily dose of wmansouk=587 mg. Recommended maximum daily dose in patients 75 years or bmoeb=229 mg. Given 05/11/2018 03:22 CDT 50 mg Given 05/11/2018 08:48 CDT 50 mg vitamin D3 (cholecalciferol) tablet 2,000 Given 05/09/2018 09:52 CDT 2,000 Units Units 2,000 Units, Oral, DAILY, First dose on Tue05/09/18 at 0900, Until Discontinued Given 05/10/2018 08:54 CDT 2,000 Units Given 05/11/2018 08:47 CDT 2,000 Units Medication Order MAR Action Action Date Dose Rate Site acetaminophen (TYLENOL) tablet 1,000 Given 05/08/2018 09:37 CDT 1,000 mg mg 1,000 mg, Oral, Pre-op, 1 dose, Tue05/08/18 at 1025, Pre - Op, Total dose of acetaminophen from all acetaminophen containing products should not exceed 4 grams (4000 mg) per day. ceFAZolin (ANCEF) 2000 mg/20 mL sterile water Given 05/08/2018 18:40 CDT 2, 000 mg IV syringe 2,000 mg, IV, Every eight hours, 2 doses, First dose on Tue05/08/18 at 1900, Last dose on Tue05/09/18 at 0300, 20 mL, PACU - Continue Post-Op, Administer as IV push over 4 minutes. Given 05/08/2018 19:00 CDT 2,000 mg Given 05/09/2018 03:58 CDT 2,000 mg diphenhydrAMINE (BENADRYL) capsule 25 mg Given 05/11/2018 08:44 CDT 25 mg 25 mg, Oral, One time, 1 dose, Marichuy 05/11/18 at 0830 fentaNYL 100 mcg/2 mL preservative free injection Given 05/08/2018 15:05 CDT 50 mcg solution 50 mcg 50 mcg, IV, Every five minutes prn, 6 doses, Starting Tue05/08/18 at 1357, Until Tue05/08/18 at 1541, moderate pain, severe pain, 2 mL, PACU, Max 300 mcg total accumulated dose. Use only anesthesia s orders for moderate/severe pain while in PACU or recovery care Given 05/08/2018 15:12 CDT 50 mcg gabapentin (NEURONTIN) capsule 600 mg Given 05/08/2018 09:38 CDT 600 mg 600 mg, Oral, Pre-op, 1 dose, Tue05/08/18 at 1025, Pre - Op, 1 dose prior to surgery ketorolac (TORADOL) intravenous injection 15 mg Given 05/08/2018 09:38 CDT 15 mg 15 mg, IV, Pre-op, 1 dose, Tue05/08/18 at 1025, 1 mL, Pre - Op, 1 dose prior to surgery ketorolac (TORADOL) intravenous injection 15 mg Given 05/08/2018 23:33 CDT 15 mg 15 mg, IV, Every six hours prn, Starting Tue05/08/18 at 1610, Until Tue05/09/18 at 1609, severe pain, 1 mL, Post - Op, If pain unrelieved by fentanyl; Max prn dose=60 mg/day Given 05/09/2018 15:35 CDT 15 mg lactated ringers IV solution New Bag 05/08/2018 09:37 CDT 25 mL/hr IV, at 25 mL/hr, Continuous, Starting Tue05/08/18 at 0945, Until Tue05/08/18 at 1428, 1,000 mL, Pre - Op New Bag 05/08/2018 12:41 CDT New Bag 05/08/2018 13:42 CDT lactated ringers IV solution Already Infusing 05/08/2018 14:31 CDT 125 mL/hr IV, at 125 mL/hr, Continuous, Starting Tue05/08/18 at 1400, Until Tue05/08/18 at 1541, 1,000 mL, PACU, TKO current fluids if patient is going to Day Unit / ARU and tolerating PO fluids without nausea. oxybutynin (DITROPAN) tablet 2.5 mg Given 05/09/2018 21:12 CDT 2.5 mg 2.5 mg, Oral, Two times a day, First dose on Tue05/08/18 at 2100, Until Discontinued Given 05/10/2018 20:55 CDT 2.5 mg Given 05/11/2018 09:33 CDT 2.5 mg traMADol (ULTRAM) tablet 100 mg Given 05/08/2018 09:37 CDT 100 mg 100 mg, Oral, Pre-op, 1 dose, Tue05/08/18 at 1025, Pre - Op, Recommended maximum daily dose of gkzwszlo=525 mg. Recommended maximum daily dose in patients 75 years or bgfzg=827 mg. in this encounter
[2018-05-18] MEDS: Acetaminophen 325 MG Tab PO PRN ×2 (12:05→21:26)
[2018-05-18] MEDS: Ferrous Sulfate 325 MG Tab PO SCH (12:05)
[2018-05-18] MEDS: Citalopram 20 MG Tab PO SCH (21:25)
--- NOTE | 2018-05-18 23:02 | PCM.PN ---
- General Info Date of Service: 05/18/18 Admission Dx/Problem (Free Text): Admission Diagnosis/Problem Admission Diagnosis/Problem Osteoarthritis Functional Status: Reports: Pain Controlled - Review of Systems General: Reports: No Symptoms HEENT: Reports: No Symptoms Pulmonary: Reports: No Symptoms Cardiovascular: Reports: No Symptoms Gastrointestinal: Reports: Decreased Appetite (improving) Genitourinary: Reports: Urgency, Incontinence Musculoskeletal: Reports: No Symptoms Skin: Reports: No Symptoms Neurological: Reports: No Symptoms Psychiatric: Reports: No Symptoms - Patient Data Vitals - Most Recent: Last Vital Signs Temp 98.1 F 05/18/18 08:00 Pulse 81 05/18/18 08:00 Resp 18 05/18/18 08:00 BP 145/63 H 05/18/18 08:00 Pulse Ox 97 05/18/18 08:00 Weight - Most Recent: 133 lb 8 oz I&O - Last 24 Hours: Intake & Output 05/18/18 05/18/18 05/18/18 06:59 14:59 22:59 Intake Total 1280 Balance 1280 Lab Results Last 24 Hours: Laboratory Results - last 24 hr 05/18/18 05/18/18 Range/Units 07:33 07:33 WBC 6.1 (4.0-10.2) K/uL RBC 3.14 L (3.77-5.09) M/uL Hgb 9.8 L (11.7-15.5) g/dL Hct 29.4 L (34.0-46.0) % MCV 93.6 (84.0-98.0) fL MCH 31.2 (28.2-33.3) pg MCHC 33.3 (31.7-36.0) g/dL RDW 13.5 (11.2-14.1) % Plt Count 262 (150-350) K/uL Neut % (Auto) 67.3 (45.0-80.0) % Lymph % (Auto) 19.5 (10.0-50.0) % Wilkes % (Auto) 10.2 (2.0-14.0) % Eos % (Auto) 2.5 (0.0-5.0) % Baso % (Auto) 0.5 (0.0-2.0) % Neut # (Auto) 4.11 (1.40-7.00) K/uL Lymph # (Auto) 1.19 (0.50-3.50) K/uL Wilkes # (Auto) 0.62 (0.00-1.00) K/uL Eos # (Auto) 0.15 (0.00-0.50) K/uL Baso # (Auto) 0.03 (0.00-0.20) K/uL Sodium 138 (136-145) mmol/L Potassium 4.0 (3.5-5.1) mmol/L Chloride 104 (98-107) mmol/L Carbon Dioxide 26.5 (21.0-32.0) mmol/L BUN 10 (7-18) mg/dL Creatinine 0.58 (0.51-1.17) mg/dL Est Cr Clr Drug Dosing 86.24 mL/min Estimated GFR (MDRD) > 60 mL/min Glucose 107 H (74-106) mg/dL Calcium 8.9 (8.5-10.1) mg/dL Total Bilirubin 0.5 (0.2-1.0) mg/dL AST 18 (15-37) U/L ALT 29 (12-78) U/L Alkaline Phosphatase 90 (46-116) IU/L Troponin I 0.000 (0.000-0.056) ng/mL NT-Pro-B Natriuret Pep 71 (0-125) pg/mL Total Protein 6.8 (6.4-8.2) g/dL Albumin 2.9 L (3.4-5.0) g/dL Med Orders - Current: Current Medications Acetaminophen (Tylenol) 650 mg PO Q4H PRN PRN Reason: Pain Last Admin: 05/18/18 12:05 Dose: 650 mg Aspirin (Ecotrin) 325 mg PO BID [facility] Stop: 06/13/18 08:01 Last Admin: 05/18/18 18:01 Dose: 325 mg Bisacodyl (Dulcolax) 5 mg PO BID PRN PRN Reason: Constipation Last Admin: 05/16/18 09:33 Dose: 5 mg Calcium Carbonate/Glycine (Tums) 500 mg PO DAILY PRN PRN Reason: EPIGASTRIC Pain Last Admin: 05/14/18 12:15 Dose: 500 mg Citalopram Hydrobromide (Celexa) 20 mg PO BEDTIME [facility] Last Admin: 05/17/18 19:34 Dose: 20 mg Diphenhydramine HCl (Benadryl) 25 mg PO Q4H PRN PRN Reason: Itching Last Admin: 05/14/18 02:35 Dose: 25 mg Magnesium Hydroxide (Milk Of Magnesia) 30 ml PO BID PRN PRN Reason: Constipation Omeprazole (Omeprazole) 20 mg PO DAILY [facility] Last Admin: 05/18/18 07:25 Dose: 20 mg Oxybutynin Chloride (Oxybutynin) 2.5 mg PO BID [facility] Last Admin: 05/18/18 18:01 Dose: 2.5 mg Simethicone (Simethicone) 80 mg PO Q6H PRN PRN Reason: Gas Tramadol HCl (Ultram) 50 mg PO Q6H PRN PRN Reason: Pain Last Admin: 05/12/18 19:53 Dose: 50 mg Discontinued Medications Calcium Carbonate (Caltrate 600+D 1500 Mg-400 Units) 1 tab PO DAILY [facility] Last Admin: 05/16/18 08:48 Dose: 1 tab Cholecalciferol (Vitamin D3) 2,000 units PO DAILY [facility] Last Admin: 05/16/18 08:51 Dose: 2,000 units Coenzyme Q10 (Coenzyme Q10) 100 mg PO BID [facility] Last Admin: 05/15/18 09:10 Dose: 100 mg Coenzyme Q10 (Coenzyme Q10) 100 mg PO BEDTIME [facility] Last Admin: 05/16/18 20:18 Dose: Not Given Cyanocobalamin (Vitamin B12) 500 mcg PO DAILY [facility] Last Admin: 05/15/18 09:18 Dose: 500 mcg Cyanocobalamin (Vitamin B12) 500 mcg PO TUTH@2000 [facility] Last Admin: 05/16/18 20:18 Dose: Not Given Famotidine (Pepcid) 20 mg PO BID [facility] Last Admin: 05/16/18 17:42 Dose: Not Given Ferrous Sulfate (Ferrous Sulfate) 325 mg PO MoWeFr@0800 [facility] Last Admin: 05/12/18 15:12 Dose: Not Given Ferrous Sulfate (Ferrous Sulfate) 325 mg PO ONETIME ONE Stop: 05/11/18 19:16 Last Admin: 05/11/18 19:56 Dose: 325 mg Ferrous Sulfate (Ferrous Sulfate) 325 mg PO TIDMEALS [facility] Last Admin: 05/16/18 17:41 Dose: 325 mg Ferrous Sulfate (Ferrous Sulfate) 325 mg PO DAILY@1200 [facility] Last Admin: 05/18/18 12:05 Dose: 325 mg Fexofenadine HCl (Tracie) 180 mg PO DAILY [facility] Last Admin: 05/15/18 09:09 Dose: Not Given Glucosamine/Chondroitin (Glucosamine-Chondroitin 500-400 Capsule) 2 cap PO BID [facility] Last Admin: 05/16/18 17:42 Dose: 2 cap Lactobacillus Rhamnosus (Culturelle) 1 cap PO DAILY [facility] Last Admin: 05/16/18 08:48 Dose: 1 cap Magnesium Oxide (Magnesium Oxide) 400 mg PO BEDTIME [facility] Last Admin: 05/16/18 20:18 Dose: Not Given Methylprednisolone Acetate (Depo-Medrol) 80 mg IM ONETIME ONE Stop: 05/11/18 18:00 Last Admin: 05/11/18 19:53 Dose: 80 mg Multivitamins/Minerals/Vitamin C (Tab-A-Rd) 1 tab PO DAILY [facility] Last Admin: 05/16/18 08:50 Dose: 1 tab Magnesium With Zinc Patient Own Med * 1 each PO DAILY [facility] Last Admin: 05/15/18 09:13 Dose: Not Given Omeprazole (Omeprazole) 40 mg PO ONETIME ONE Stop: 05/14/18 16:51 Last Admin: 05/14/18 16:59 Dose: 40 mg Oxycodone HCl (Oxycodone) 5 mg PO Q6HR PRN PRN Reason: Pain Oxycodone HCl (Oxycodone) 5 mg PO Q6H PRN PRN Reason: Pain Pravastatin Sodium (Pravachol) 20 mg PO BEDTIME [facility] Last Admin: 05/16/18 20:10 Dose: 20 mg Tramadol HCl (Ultram) 50 mg PO Q6HR PRN PRN Reason: Pain - Exam Quality Assessment: DVT Prophylaxis General: Alert, Cooperative, No Acute Distress HEENT: Mucous Membr. Moist/[place] Neck: Trachea Midline, No JVD Lungs: Clear to Auscultation, Normal Respiratory Effort Cardiovascular: Regular Rate, Regular Rhythm, Murmurs (ADRIANNE) GI/Abdominal Exam: Soft, Non-Tender, No Distention (Female) Exam: Deferred Back Exam: Normal Inspection Extremities: Normal Inspection, Non-Tender Skin: Warm, Dry, Intact Wound/Incisions: Healing Well (right hip), Dressing Dry and Intact, No Drainage , Other (mild swelling and ecchymosis around incision) Neurological: No New Focal Deficit Psy/Mental Status: Alert, Normal Affect, Normal Mood - Problem List & Annotations (1) Aftercare following right hip joint replacement surgery SNOMED Code(s): 718171376, 425752037 Code(s): Z47.1 - AFTERCARE FOLLOWING JOINT REPLACEMENT SURGERY; Z96.641 - PRESENCE OF RIGHT ARTIFICIAL HIP JOINT Status: Acute Priority: High Current Visit: Yes (2) Allergic dermatitis SNOMED Code(s): 676060614 Code(s): L23.9 - ALLERGIC CONTACT DERMATITIS, UNSPECIFIED CAUSE Status: Acute Priority: High Current Visit: Yes Onset Date: ~05/10/18 Annotation /Comment:: Significant allergic dermatitis of unknown etiology. Hold Celebrex for now. Patient's Benadryl is to be increased with additional IM Depo-Medrol given shortly after admission. (3) Peptic reflux disease SNOMED Code(s): 867388892 Code(s): K21.9 - GASTRO-ESOPHAGEAL REFLUX DISEASE WITHOUT ESOPHAGITIS Status: Acute Priority: Medium Current Visit: Yes Annotation/Comment:: Stable with current medications (4) Heart murmur SNOMED Code(s): 86662732 Code(s): R01.1 - CARDIAC MURMUR, UNSPECIFIED Status: Chronic Priority: Medium Current Visit: Yes Annotation/Comment:: Significant cardiac murmurs as above. Echocardiogram recommended after discharge from swing bed.. No chest pain or anginal symptoms. Consider further cardiac workup depending on her clinical course. (5) Hyperlipidemia SNOMED Code(s): 45675968 Code(s): E78.5 - HYPERLIPIDEMIA, UNSPECIFIED Status: Chronic Priority: Medium Current Visit: Yes Qualifiers: Hyperlipidemia type: unspecified Qualified Code(s): E78.5 - Hyperlipidemia , unspecified Annotation/Comment:: Close follow-up by regular providers after discharge (6) Iron deficiency anemia SNOMED Code(s): 58235621 Code(s): D50.9 - IRON DEFICIENCY ANEMIA, UNSPECIFIED Status: Chronic Priority: Medium Current Visit: Yes Qualifiers: Iron deficiency anemia type: other iron deficiency Qualified Code(s): D50.8 - Other iron deficiency anemias Annotation/Comment:: Iron studies to be conducted in the a.m. Note some postoperative anemia prior to discharge. (7) Mixed anxiety and depressive disorder SNOMED Code(s): 203493159 Code(s): F41.8 - OTHER SPECIFIED ANXIETY DISORDERS Status: Chronic Priority: Medium Current Visit: Yes Annotation/Comment:: Stable by patient history (8) Osteoarthritis SNOMED Code(s): 139214785 Code(s): M19.90 - UNSPECIFIED OSTEOARTHRITIS, UNSPECIFIED SITE Status: Acute Priority: Medium Current Visit: No Annotation/Comment:: Otherwise stable by patient history after recent right hip surgery as above. Continue to observe closely secondary to discontinuation of Celebrex as below. - Problem List Review Problem List Initiated/Reviewed/Updated: Yes - My Orders Last 24 Hours: My Active Orders 05/23/18 15:00 Echo Comp wo Cont [US] Routine - Plan Plan:: As above. Physical therapy, occupational therapy, etc. ordered for strengthening. Blood work to be conducted in the a.m. Extensive precautions were given to the patient, who is in agreement with the treatment plan. Discharge to home after patient completes physical therapy, etc. 05/18/18 Elsy Nugent MD Feels better. Stomach improving and appetite improving. No pain in right hip. Incision healing very well.
[2018-05-19] MEDS: Aspirin 325 MG Tab.EC PO SCH ×2 (08:35→18:20)
[2018-05-19] MEDS: Omeprazole 20 MG Cap.CR PO SCH (08:35)
[2018-05-19] MEDS: Oxybutynin 5 MG Tab PO SCH ×2 (08:36→18:21)
[2018-05-19] MEDS: Acetaminophen 325 MG Tab PO PRN (08:37)
[2018-05-19 10:20] VITALS: BP 162/70
--- NOTE | 2018-05-19 17:04 | PCM.PN ---
- General Info Date of Service: 05/19/18 Admission Dx/Problem (Free Text): Admission Diagnosis/Problem Admission Diagnosis/Problem Osteoarthritis Functional Status: Reports: Pain Controlled - Review of Systems General: Reports: No Symptoms HEENT: Reports: No Symptoms Pulmonary: Reports: No Symptoms Cardiovascular: Reports: No Symptoms Gastrointestinal: Reports: No Symptoms Genitourinary: Reports: No Symptoms Musculoskeletal: Reports: No Symptoms Skin: Reports: No Symptoms Neurological: Reports: No Symptoms Psychiatric: Reports: No Symptoms - Patient Data Vitals - Most Recent: Last Vital Signs Temp 98.6 F 05/19/18 09:30 Pulse 86 05/19/18 09:30 Resp 17 05/19/18 09:30 BP 162/70 H 05/19/18 09:30 Pulse Ox 98 05/19/18 09:30 Weight - Most Recent: 230 lb 4 oz I&O - Last 24 Hours: Intake & Output 05/19/18 05/19/18 05/19/18 06:59 14:59 22:59 Intake Total 240 Balance 240 Med Orders - Current: Current Medications Acetaminophen (Tylenol) 650 mg PO Q4H PRN PRN Reason: Pain Last Admin: 05/19/18 08:37 Dose: 650 mg Aspirin (Ecotrin) 325 mg PO BID [facility] Stop: 06/13/18 08:01 Last Admin: 05/19/18 08:35 Dose: 325 mg Bisacodyl (Dulcolax) 5 mg PO BID PRN PRN Reason: Constipation Last Admin: 05/16/18 09:33 Dose: 5 mg Calcium Carbonate/Glycine (Tums) 500 mg PO DAILY PRN PRN Reason: EPIGASTRIC Pain Last Admin: 05/14/18 12:15 Dose: 500 mg Citalopram Hydrobromide (Celexa) 20 mg PO BEDTIME [facility] Last Admin: 05/18/18 21:25 Dose: 20 mg Diphenhydramine HCl (Benadryl) 25 mg PO Q4H PRN PRN Reason: Itching Last Admin: 05/14/18 02:35 Dose: 25 mg Magnesium Hydroxide (Milk Of Magnesia) 30 ml PO BID PRN PRN Reason: Constipation Omeprazole (Omeprazole) 20 mg PO DAILY REPLACED BY [facility] Last Admin: 05/19/18 08:35 Dose: 20 mg Oxybutynin Chloride (Oxybutynin) 2.5 mg PO BID REPL[facility]ED BY [facility] Last Admin: 05/19/18 08:36 Dose: 2.5 mg Simethicone (Simethicone) 80 mg PO Q6H PRN PRN Reason: Gas Tramadol HCl (Ultram) 50 mg PO Q6H PRN PRN Reason: Pain Last Admin: 05/12/18 19:53 Dose: 50 mg Discontinued Medications Calcium Carbonate (Caltrate 600+D 1500 Mg-400 Units) 1 tab PO DAILY [facility]PL[facility] BY [facility] Last Admin: 05/16/18 08:48 Dose: 1 tab Cholecalciferol (Vitamin D3) 2,000 units PO DAILY [facility]PL[facility] BY [facility] Last Admin: 05/16/18 08:51 Dose: 2,000 units Coenzyme Q10 (Coenzyme Q10) 100 mg PO BID [facility] BY [facility] Last Admin: 05/15/18 09:10 Dose: 100 mg Coenzyme Q10 (Coenzyme Q10) 100 mg PO BEDTIME [facility]PL[facility] BY [facility] Last Admin: 05/16/18 20:18 Dose: Not Given Cyanocobalamin (Vitamin B12) 500 mcg PO DAILY REPL[facility] BY [facility] Last Admin: 05/15/18 09:18 Dose: 500 mcg Cyanocobalamin (Vitamin B12) 500 mcg PO TUTH@2000 REPL[facility] Last Admin: 05/16/18 20:18 Dose: Not Given Famotidine (Pepcid) 20 mg PO BID [facility] BY [facility] Last Admin: 05/16/18 17:42 Dose: Not Given Ferrous Sulfate (Ferrous Sulfate) 325 mg PO MoWeFr@0800 [facility] Last Admin: 05/12/18 15:12 Dose: Not Given Ferrous Sulfate (Ferrous Sulfate) 325 mg PO ONETIME ONE Stop: 05/11/18 19:16 Last Admin: 05/11/18 19:56 Dose: 325 mg Ferrous Sulfate (Ferrous Sulfate) 325 mg PO TIDMEALS REPLACED BY [facility] Last Admin: 05/16/18 17:41 Dose: 325 mg Ferrous Sulfate (Ferrous Sulfate) 325 mg PO DAILY@1200 [facility] Last Admin: 05/18/18 12:05 Dose: 325 mg Fexofenadine HCl (Tracie) 180 mg PO DAILY [facility] BY [facility] Last Admin: 05/15/18 09:09 Dose: Not Given Glucosamine/Chondroitin (Glucosamine-Chondroitin 500-400 Capsule) 2 cap PO BID [facility]PL[facility] BY [facility] Last Admin: 05/16/18 17:42 Dose: 2 cap Lactobacillus Rhamnosus (Culturelle) 1 cap PO DAILY REPL[facility] BY [facility] Last Admin: 05/16/18 08:48 Dose: 1 cap Magnesium Oxide (Magnesium Oxide) 400 mg PO BEDTIME REPLACED BY [facility] Last Admin: 05/16/18 20:18 Dose: Not Given Methylprednisolone Acetate (Depo-Medrol) 80 mg IM ONETIME ONE Stop: 05/11/18 18:00 Last Admin: 05/11/18 19:53 Dose: 80 mg Multivitamins/Minerals/Vitamin C (Tab-A-Rd) 1 tab PO DAILY [facility]PL[facility] BY [facility] Last Admin: 05/16/18 08:50 Dose: 1 tab Magnesium With Zinc Patient Own Med * 1 each PO DAILY REPLACED BY [facility] Last Admin: 05/15/18 09:13 Dose: Not Given Omeprazole (Omeprazole) 40 mg PO ONETIME ONE Stop: 05/14/18 16:51 Last Admin: 05/14/18 16:59 Dose: 40 mg Oxycodone HCl (Oxycodone) 5 mg PO Q6HR PRN PRN Reason: Pain Oxycodone HCl (Oxycodone) 5 mg PO Q6H PRN PRN Reason: Pain Pravastatin Sodium (Pravachol) 20 mg PO BEDTIME REPLAC[facility] BY [facility] Last Admin: 05/16/18 20:10 Dose: 20 mg Tramadol HCl (Ultram) 50 mg PO Q6HR PRN PRN Reason: Pain - Exam Quality Assessment: DVT Prophylaxis General: Alert, Cooperative, No Acute Distress HEENT: Mucous Membr. Moist/[place] Neck: Trachea Midline, No JVD Lungs: Clear to Auscultation, Normal Respiratory Effort Cardiovascular: Regular Rate, Regular Rhythm, Murmurs GI/Abdominal Exam: Soft, Non-Tender (Female) Exam: Deferred Back Exam: Normal Inspection Extremities: Pedal Edema (right) Skin: Warm, Dry, Intact, Ecchymosis Wound/Incisions: Healing Well, Dressing Dry and Intact, No Drainage, Other ( mild eccymosis and mild swelling) Neurological: No New Focal Deficit Psy/Mental Status: Alert, Normal Affect, Normal Mood - Problem List & Annotations (1) Aftercare following right hip joint replacement surgery SNOMED Code(s): 294618294, 362154835 Code(s): Z47.1 - AFTERCARE FOLLOWING JOINT REPLACEMENT SURGERY; Z96.641 - PRESENCE OF RIGHT ARTIFICIAL HIP JOINT Status: Acute Priority: High Current Visit: Yes (2) Allergic dermatitis SNOMED Code(s): 750723250 Code(s): L23.9 - ALLERGIC CONTACT DERMATITIS, UNSPECIFIED CAUSE Status: Acute Priority: High Current Visit: Yes Onset Date: ~05/10/18 Annotation /Comment:: Significant allergic dermatitis of unknown etiology. Hold Celebrex for now. Patient's Benadryl is to be increased with additional IM Depo-Medrol given shortly after admission. (3) Peptic reflux disease SNOMED Code(s): 765022090 Code(s): K21.9 - GASTRO-ESOPHAGEAL REFLUX DISEASE WITHOUT ESOPHAGITIS Status: Acute Priority: Medium Current Visit: Yes Annotation/Comment:: Stable with current medications (4) Heart murmur SNOMED Code(s): 41396777 Code(s): R01.1 - CARDIAC MURMUR, UNSPECIFIED Status: Chronic Priority: Medium Current Visit: Yes Annotation/Comment:: Significant cardiac murmurs as above. Echocardiogram recommended after discharge from swing bed.. No chest pain or anginal symptoms. Consider further cardiac workup depending on her clinical course. (5) Hyperlipidemia SNOMED Code(s): 96026624 Code(s): E78.5 - HYPERLIPIDEMIA, UNSPECIFIED Status: Chronic Priority: Medium Current Visit: Yes Qualifiers: Hyperlipidemia type: unspecified Qualified Code(s): E78.5 - Hyperlipidemia , unspecified Annotation/Comment:: Close follow-up by regular providers after discharge (6) Iron deficiency anemia SNOMED Code(s): 16703389 Code(s): D50.9 - IRON DEFICIENCY ANEMIA, UNSPECIFIED Status: Chronic Priority: Medium Current Visit: Yes Qualifiers: Iron deficiency anemia type: other iron deficiency Qualified Code(s): D50.8 - Other iron deficiency anemias Annotation/Comment:: Iron studies to be conducted in the a.m. Note some postoperative anemia prior to discharge. (7) Mixed anxiety and depressive disorder SNOMED Code(s): 513462635 Code(s): F41.8 - OTHER SPECIFIED ANXIETY DISORDERS Status: Chronic Priority: Medium Current Visit: Yes Annotation/Comment:: Stable by patient history (8) Osteoarthritis SNOMED Code(s): 374973722 Code(s): M19.90 - UNSPECIFIED OSTEOARTHRITIS, UNSPECIFIED SITE Status: Acute Priority: Medium Current Visit: No Annotation/Comment:: Otherwise stable by patient history after recent right hip surgery as above. Continue to observe closely secondary to discontinuation of Celebrex as below. - Problem List Review Problem List Initiated/Reviewed/Updated: Yes - My Orders Last 24 Hours: My Active Orders 05/19/18 11:01 Ready for Discharge [RC] PER UNIT ROUTINE 05/23/18 15:00 Echo Comp wo Cont [US] Routine - Plan Plan:: As above. Physical therapy, occupational therapy, etc. ordered for strengthening. Blood work to be conducted in the a.m. Extensive precautions were given to the patient, who is in agreement with the treatment plan. Discharge to home after patient completes physical therapy, etc. 05/18/18 Elsy Nugent MD Feels better. Stomach improving and appetite improving. No pain in right hip. Incision healing very well. 05/19/18 Elsy Nugent MD Ready for discharge. All questions answered.
--- NOTE | 2018-05-19 17:05 | PCM.DCSUM1 ---
Discharge Summary - Hospital Course Diagnosis: Stroke: No - Discharge Data Discharge Date: 05/19/18 Discharge Disposition: Home, Self-Care 01 Condition: Good - Discharge Diagnosis/Problem(s) (1) Aftercare following right hip joint replacement surgery SNOMED Code(s): 510942609, 245036206 ICD Code: Z47.1 - AFTERCARE FOLLOWING JOINT REPLACEMENT SURGERY; Z96.641 - PRESENCE OF RIGHT ARTIFICIAL HIP JOINT Status: Acute Priority: High Current Visit: Yes (2) Allergic dermatitis SNOMED Code(s): 642010420 ICD Code: L23.9 - ALLERGIC CONTACT DERMATITIS, UNSPECIFIED CAUSE Status: Acute Priority: High Current Visit: Yes Onset Date: ~05/10/18 Problem Details: Significant allergic dermatitis of unknown etiology. Hold Celebrex for now. Patient's Benadryl is to be increased with additional IM Depo-Medrol given shortly after admission. (3) Peptic reflux disease SNOMED Code(s): 225319746 ICD Code: K21.9 - GASTRO-ESOPHAGEAL REFLUX DISEASE WITHOUT ESOPHAGITIS Status: Acute Priority: Medium Current Visit: Yes Problem Details: Stable with current medications (4) Heart murmur SNOMED Code(s): 17633869 ICD Code: R01.1 - CARDIAC MURMUR, UNSPECIFIED Status: Chronic Priority: Medium Current Visit: Yes Problem Details: Significant cardiac murmurs as above. Echocardiogram recommended after discharge from swing bed.. No chest pain or anginal symptoms. Consider further cardiac workup depending on her clinical course. (5) Hyperlipidemia SNOMED Code(s): 73384917 ICD Code: E78.5 - HYPERLIPIDEMIA, UNSPECIFIED Status: Chronic Priority: Medium Current Visit: Yes Problem Details: Close follow-up by regular providers after discharge Qualifiers: Hyperlipidemia type: unspecified Qualified Code(s): E78.5 - Hyperlipidemia , unspecified (6) Iron deficiency anemia SNOMED Code(s): 19192743 ICD Code: D50.9 - IRON DEFICIENCY ANEMIA, UNSPECIFIED Status: Chronic Priority: Medium Current Visit: Yes Problem Details: Iron studies to be conducted in the a.m. Note some postoperative anemia prior to discharge. Qualifiers: Iron deficiency anemia type: other iron deficiency Qualified Code(s): D50.8 - Other iron deficiency anemias (7) Mixed anxiety and depressive disorder SNOMED Code(s): 532440053 ICD Code: F41.8 - OTHER SPECIFIED ANXIETY DISORDERS Status: Chronic Priority: Medium Current Visit: Yes Problem Details: Stable by patient history (8) Osteoarthritis SNOMED Code(s): 349766715 ICD Code: M19.90 - UNSPECIFIED OSTEOARTHRITIS, UNSPECIFIED SITE Status: Acute Priority: Medium Current Visit: No Problem Details: Otherwise stable by patient history after recent right hip surgery as above. Continue to observe closely secondary to discontinuation of Celebrex as below. - Patient Summary/Data Consults: Consultations 05/11/18 17:45 Consult to Case Management [CONS] Routine Consult to Manager Finance [CONS] Routine Consult to Spiritual Care [CONS] Routine OT Evaluation and Treatment [CONS] Routine PT Evaluation and Treatment [CONS] Routine - Patient Instructions Diet: Heart Healthy Diet Activity: As Tolerated (as per your orthopedic surgeon's recommendations and PT recommendations) Driving: Do Not Drive (Until you see your orthopedic surgeon) Showering/Bathing: May Shower Wound/Incision Care: Keep Operative Site/Wound Site Clean and Dry Notify Provider of: Fever, Increased Pain, Swelling and Redness, Drainage, Nausea and/or Vomiting Other/Special Instructions: Keep your follow-up appointment with your orthopedic surgeon as already scheduled. Echocardiogram (heart test) will be next Tuesday as outpatient. Follow up at [facility] in 4-6 weeks or sooner to have your hemoglobin and iron levels checked. - Discharge Plan *PRESCRIPTION DRUG MONITORING PROGRAM REVIEWED*: Not Applicable *COPY OF PRESCRIPTION DRUG MONITORING REPORT IN PATIENT MIRACLE: Not Applicable Home Medications: Home Meds Acetaminophen 650 mg PO Q4HR PRN 05/11/18 [History] Aspirin [Ecotrin] 325 mg PO BID 05/11/18 [History] Bisacodyl 5 mg PO BID PRN 05/11/18 [History] Calcium Carbonate [Tums] 500 mg PO DAILY PRN 05/11/18 [History] Cholecalciferol (Vitamin D3) [D3-1999] 2,000 unit PO DAILY 05/11/18 [History] Citalopram [Citalopram HBr] 20 mg PO BEDTIME 05/11/18 [History] Cyanocobalamin (Vitamin B-12) [B-12] 500 mcg PO TUTH@2000 05/11/18 [History] Gluc Lacy/Msm/Magnesium/Vit C [Glucosamine Complex-MSM] 2 tab PO BID 05/11/18 [ History] Multivitamin [Super Multivitamin] 1 each PO DAILY 05/11/18 [History] Omeprazole 20 mg PO DAILY 05/11/18 [History] Oxybutynin 2.5 mg PO BID@0730,2000 05/11/18 [History] Pravastatin [Pravachol] 20 mg PO BEDTIME 05/11/18 [History] Ubidecarenone [Coq-10] 100 mg PO BEDTIME 05/11/18 [History] Patient Handouts: Total Hip Replacement, Care After - Discharge Summary/Plan Comment DC Time >30 min.: No - Patient Data Vitals - Most Recent: Last Vital Signs Temp 98.6 F 05/19/18 09:30 Pulse 86 05/19/18 09:30 Resp 17 05/19/18 09:30 BP 162/70 H 05/19/18 09:30 Pulse Ox 98 05/19/18 09:30 Weight - Most Recent: 230 lb 4 oz I&O - Last 24 hours: Intake & Output 05/19/18 05/19/18 05/19/18 06:59 14:59 22:59 Intake Total 240 Balance 240 Med Orders - Current: Current Medications Acetaminophen (Tylenol) 650 mg PO Q4H PRN PRN Reason: Pain Last Admin: 05/19/18 08:37 Dose: 650 mg Aspirin (Ecotrin) 325 mg PO BID [facility] Stop: 06/13/18 08:01 Last Admin: 05/19/18 08:35 Dose: 325 mg Bisacodyl (Dulcolax) 5 mg PO BID PRN PRN Reason: Constipation Last Admin: 05/16/18 09:33 Dose: 5 mg Calcium Carbonate/Glycine (Tums) 500 mg PO DAILY PRN PRN Reason: EPIGASTRIC Pain Last Admin: 05/14/18 12:15 Dose: 500 mg Citalopram Hydrobromide (Celexa) 20 mg PO BEDTIME [facility] Last Admin: 05/18/18 21:25 Dose: 20 mg Diphenhydramine HCl (Benadryl) 25 mg PO Q4H PRN PRN Reason: Itching Last Admin: 05/14/18 02:35 Dose: 25 mg Magnesium Hydroxide (Milk Of Magnesia) 30 ml PO BID PRN PRN Reason: Constipation Omeprazole (Omeprazole) 20 mg PO DAILY [facility] Last Admin: 05/19/18 08:35 Dose: 20 mg Oxybutynin Chloride (Oxybutynin) 2.5 mg PO BID [facility] Last Admin: 05/19/18 08:36 Dose: 2.5 mg Simethicone (Simethicone) 80 mg PO Q6H PRN PRN Reason: Gas Tramadol HCl (Ultram) 50 mg PO Q6H PRN PRN Reason: Pain Last Admin: 05/12/18 19:53 Dose: 50 mg Discontinued Medications Calcium Carbonate (Caltrate 600+D 1500 Mg-400 Units) 1 tab PO DAILY [facility] Last Admin: 05/16/18 08:48 Dose: 1 tab Cholecalciferol (Vitamin D3) 2,000 units PO DAILY [facility] Last Admin: 05/16/18 08:51 Dose: 2,000 units Coenzyme Q10 (Coenzyme Q10) 100 mg PO BID [facility] Last Admin: 05/15/18 09:10 Dose: 100 mg Coenzyme Q10 (Coenzyme Q10) 100 mg PO BEDTIME [facility] Last Admin: 05/16/18 20:18 Dose: Not Given Cyanocobalamin (Vitamin B12) 500 mcg PO DAILY [facility] Last Admin: 05/15/18 09:18 Dose: 500 mcg Cyanocobalamin (Vitamin B12) 500 mcg PO TUTH@2000 [facility] Last Admin: 05/16/18 20:18 Dose: Not Given Famotidine (Pepcid) 20 mg PO BID [facility] Last Admin: 05/16/18 17:42 Dose: Not Given Ferrous Sulfate (Ferrous Sulfate) 325 mg PO MoWeFr@0800 [facility] Last Admin: 05/12/18 15:12 Dose: Not Given Ferrous Sulfate (Ferrous Sulfate) 325 mg PO ONETIME ONE Stop: 05/11/18 19:16 Last Admin: 05/11/18 19:56 Dose: 325 mg Ferrous Sulfate (Ferrous Sulfate) 325 mg PO TIDMEALS [facility] Last Admin: 05/16/18 17:41 Dose: 325 mg Ferrous Sulfate (Ferrous Sulfate) 325 mg PO DAILY@1200 [facility] Last Admin: 05/18/18 12:05 Dose: 325 mg Fexofenadine HCl (Tracie) 180 mg PO DAILY [facility] Last Admin: 05/15/18 09:09 Dose: Not Given Glucosamine/Chondroitin (Glucosamine-Chondroitin 500-400 Capsule) 2 cap PO BID [facility] Last Admin: 05/16/18 17:42 Dose: 2 cap Lactobacillus Rhamnosus (Culturelle) 1 cap PO DAILY [facility] Last Admin: 05/16/18 08:48 Dose: 1 cap Magnesium Oxide (Magnesium Oxide) 400 mg PO BEDTIME [facility] Last Admin: 05/16/18 20:18 Dose: Not Given Methylprednisolone Acetate (Depo-Medrol) 80 mg IM ONETIME ONE Stop: 05/11/18 18:00 Last Admin: 05/11/18 19:53 Dose: 80 mg Multivitamins/Minerals/Vitamin C (Tab-A-Rd) 1 tab PO DAILY [facility] Last Admin: 05/16/18 08:50 Dose: 1 tab Magnesium With Zinc Patient Own Med * 1 each PO DAILY [facility] Last Admin: 05/15/18 09:13 Dose: Not Given Omeprazole (Omeprazole) 40 mg PO ONETIME ONE Stop: 05/14/18 16:51 Last Admin: 05/14/18 16:59 Dose: 40 mg Oxycodone HCl (Oxycodone) 5 mg PO Q6HR PRN PRN Reason: Pain Oxycodone HCl (Oxycodone) 5 mg PO Q6H PRN PRN Reason: Pain Pravastatin Sodium (Pravachol) 20 mg PO BEDTIME [facility] Last Admin: 05/16/18 20:10 Dose: 20 mg Tramadol HCl (Ultram) 50 mg PO Q6HR PRN PRN Reason: Pain
[2018-05-19] MEDS: Citalopram 20 MG Tab PO SCH (19:20)
== END 2018-05-19 19:30 | disposition home or self-care (01) | DRG 561 ==
LOC: LL.SWG 14:30
PROVIDERS: ADMIT Family Medicine; ATTEND Family Medicine
DX: Z47.1 Aftercare following joint replacement surgery (principal); Z96.641 Presence of right artificial hip joint; L23.9 Allergic contact dermatitis, unspecified cause; K21.9 Gastro-esophageal reflux disease without esophagitis; R01.1 Cardiac murmur, unspecified; E78.5 Hyperlipidemia, unspecified; D50.9 Iron deficiency anemia, unspecified; F41.8 Other specified anxiety disorders; K59.09 Other constipation; M16.11 Unilateral primary osteoarthritis, right hip; K44.9 Diaphragmatic hernia without obstruction or gangrene; M40.204 Unspecified kyphosis, thoracic region; D69.6 Thrombocytopenia, unspecified; Z79.82 Long term (current) use of aspirin; Z79.899 Other long term (current) drug therapy
CPT/HCPCS: 36415; 71046; 80053; 82607; 83036; 83540; 83550; 83735; 83880; 84443; 84484; 84550; 85025; 93005; 97110-GO; 97110-GP; 97162-GP; 97165-GO; 97530-GO; 97530-GP; 97535-GO; A9270-GY; J1040

== ENCOUNTER 2021-11-07 00:20 | Observation (INO) | payer MEDICARE, OTHER ==
[2021-11-07] MEDS ORDERED: Acetaminophen/HYDROcodone 325-10 MG Tab PO ONE (01:07)
--- NOTE | 2021-11-07 02:44 | EDM.PDOC ---
ED HPI GENERAL MEDICAL PROBLEM - General Chief Complaint: Lower Extremity Injury/Pain Stated Complaint: Left hip pain Time Seen by Provider: 11/07/21 00:25 Source of Information: Reports: Patient History Limitations: Reports: No Limitations - History of Present Illness INITIAL COMMENTS - FREE TEXT/NARRATIVE: Pt. states that she fell when she was walking around the edge of her bed after looking out the window. She states that she fell onto her L hip. She has a history of bilateral total hip arthroplasties. Pt. states that she did not strike her head, and denies any neck or back pain. She denied any chest pain, shortness of breath, palpitations, lightheadedness prior to the fall. She is not anticoagulated. Pt. states that she called family to help her get up, but she was unable to bear weight on the L leg. EMS was summoned and she was brought to ER. Pt. relates that the only pain is located in the L posteriolateral hip area. Denies any inguinal pain. No foreshortening or internal/external rotation of the extremity. Pt. lives in the upper level of a house, and her son-in-law lives in the basement. She does all of her own activities for daily living. Onset: Today Onset Date: 11/06/21 Location: Reports: Lower Extremity, Left Quality: Reports: Throbbing Severity: Moderate Left Hip Pain Score (Numeric/FACES): 6 - Related Data Allergies Allergy/AdvReac Type Severity Reaction Status Date / Time No Known Allergies Allergy Verified 11/07/21 02:30 Home Meds: Home Meds Acetaminophen 650 mg PO Q4HR PRN 05/11/18 [History] Calcium Carbonate [Tums] 500 mg PO DAILY PRN 05/11/18 [History] Cholecalciferol (Vitamin D3) [D3-2000] 2,000 unit PO DAILY 05/11/18 [History] Citalopram [Citalopram HBr] 20 mg PO BEDTIME 05/11/18 [History] Cyanocobalamin (Vitamin B-12) [B-12] 1,000 mcg PO MOWEFR@08 05/11/18 [History] Gluc Lacy/Msm/Magnesium/Vit C [Glucosamine Complex-MSM] 2 tab PO BID 05/11/18 [History] Multivitamin [Super Multivitamin] 1 each PO DAILY 05/11/18 [History] Omeprazole 20 mg PO DAILY 05/11/18 [History] Oxybutynin 2.5 mg PO BID@729,199905/11/18 [History] Pravastatin [Pravachol] 20 mg PO BEDTIME 05/11/18 [History] Ubidecarenone [Coq-10] 100 mg PO BID 05/11/18 [History] Amoxicillin 2,000 mg PO ASDIRECTED PRN 11/07/21 [History] Calcium Carbonate/Vitamin D3 [Calcium Carbonate/Vitamin D 600 MG-200 Unit] 1 tab PO DAILY 11/07/21 [History] Cholecalciferol (Vitamin D3) [Vitamin D3] 25 mcg PO DAILY 11/07/21 [History] Ferrous Sulfate 325 mg PO SUTUTHSA@08 11/07/21 [History] buPROPion HCL [Wellbutrin Xl] 150 mg PO ASDIRECTED 11/07/21 [History] Past Medical History HEENT History: Reports: Allergic Rhinitis, Cataract, Glaucoma, Impaired Vision, Retinal Detachment, Other (See Below) Other HEENT History: Patient wears bifocals. Dry eye syndrome. Cardiovascular History: Reports: Heart Murmur, High Cholesterol, Other (See Below) Other Cardiovascular History: Moderate aortic valve stenosis and mild to moderate mitral valve deficiency by clinical exam with no previous workup Respiratory History: Reports: Intubation, Previous Gastrointestinal History: Reports: Chronic Constipation, GERD, Hemorrhoids Other Gastrointestinal History: acid reflux Genitourinary History: Reports: Urinary Incontinence, Other (See Below) Other Genitourinary History: History of stress incontinence CAR RETARDER OPERATOR History: Reports: Dysfunctional Uterine Bleeding, Fibroids, , Spontaneous Other CAR RETARDER OPERATOR History: Positive at about age 51. Third with placenta previa and early delivery at 34 weeks gestation. Otherwise Full term without complications during pregnancies or deliveries. First trimester SAB not requiring D&C. Musculoskeletal History: Reports: Arthritis, Back Pain, Chronic, Fracture, Fibromyalgia, Neck Pain, Chronic, Osteoarthritis, Osteoporosis Other Musculoskeletal History: Vertebral body compression fractures of L1, L3, and L5 by MRI. Right fifth metatarsal fracture in about 1979. Right proximal humeral fracture on 12/10/14. Lumbar spinal stenosis. Bilateral staged hip arthroplasties. Neurological History: Reports: None Psychiatric History: Reports: Anxiety, Depression Endocrine/Metabolic History: Reports: Obesity/BMI 30+, Osteopenia, Osteoporosis Hematologic History: Reports: Anemia, Blood Transfusion(s), Iron Deficiency, Other (See Below) Other Hematologic History: blood transfusion after her third delivery in October 1965 Immunologic History: Reports: None Oncologic (Cancer) History: Reports: None Dermatologic History: Reports: Other (See Below) Other Dermatologic History: Actinic keratosis. - Infectious Disease History Infectious Disease History: Reports: Chicken Pox, Measles - Past Surgical History Head Surgeries/Procedures: Reports: Other (See Below) HEENT Surgical History: Reports: Cataract Surgery, Detached Retina, Eye Surgery, Oral Surgery, Other (See Below) Other HEENT Surgeries/Procedures: [place] teeth extraction 2 with 1 tooth in about 1999 and the second tooth in about 2005. Known type of left eye surgery in about 1999. Left cataract surgery on 11/30/17. Right cataract surgery on 12/07/17. Corneal repair for retinal detachment in 1996. Iridectomy bilaterally with YAG treatment on 10/11/17 Cardiovascular Surgical History: Reports: None, Varicose, Other (See Below) Other Cardiovascular Surgeries/Procedures: Varicose vein stripping of the left leg in about 2007. Respiratory Surgical History: Reports: None GI Surgical History: Reports: Colonoscopy, Other (See Below) Other GI Surgeries/Procedures: Last colonoscopy on 01/10/14. Female Surgical History: Reports: Breast Biopsy, Other (See Below) Other Female Surgeries/Procedures: Breast biopsy of the right breast in 1988 with subsequent right breast biopsy in the for benign disease. Endocrine Surgical History: Reports: None Neurological Surgical History: Reports: None Musculoskeletal Surgical History: Reports: Carpal Tunnel, Hip Replacement, Other (See Below) Other Musculoskeletal Surgeries/Procedures:: Left hip TEP on 08/01/12. Right hip TEP on 05/08/18. Bilateral carpal tunnel release in about 2001 Oncologic Surgical History: Reports: None Dermatological Surgical History: Reports: None - Past Imaging History Past Imaging History: Reports: Bone Scan (Bone scan of the thoracic and lumbar spines on 05/11/12), DEXA Scan (04/24/12), Mammogram (Last mammogram on 03/17/18), MRI (MRI of the C-spine on 05/23/12. MRI of the lumbar spine on 05/29/12.), Ultrasound (Soft tissue ultrasound at T3 on 11/06/12.) Social & Family History - Family History HEENT: Reports: Cataract, Impaired Vision, Macular Degeneration, Other (See Below) Other HEENT Family History: Mother with macular degeneration and cataracts. Cardiac: Reports: Arrhythmia, CAD, Heart Failure, Hypertension, Other (See Below) Other Cardiac Family History: Mother with fatal CHF at age 94 with additional history of hypertension. Sister with unknown type of tachycardia. Father with hypertension. Respiratory: Reports: None GI: Reports: Celiac Disease, Other (See Below) Other GI Family History: Mother with irritable bowel syndrome. Niece with celiac disease. : Reports: None OBGYN: Reports: Dysfunctional uterine bleeding, Endometriosis, Fibroids, Other (See Below) Other OBGYN Family History: Daughter with endometriosis and uterine fibroids requiring hysterectomy. Musculoskeletal: Reports: Arthritis, Back pain, Chronic, Osteoarthritis, Other (See Below) Other Musculoskeletal Family History: Father with osteoarthritis. Neurological: Reports: Migraines, Other (See Below) Other Neurological Family History: Son, daughter, and granddaughter with migraine headaches Psychiatric: Reports: Anxiety, Depression, Other (See Below) Other Psychiatric Family History: Father with anxiety depression disorder and alcohol abuse Endocrine/Metabolic: Reports: Diabetes, Type I, IDDM, Other (See Below) Other Endocrine/Metabolic Family History: Nephew with type I IDDM Hematologic: Reports: None Immunologic: Reports: None Dermatologic: Reports: None Oncologic: Reports: Lymphoma, Other (See Below) Other Oncologic Family History: Father with fatal lymphoma at age 76. 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 Denies: Chest Pain, Edema, Irregular Heart Rate, Lightheadedness, Palpitations, Syncope GI/Abdominal: Reports: No Symptoms Genitourinary: Reports: No Symptoms Musculoskeletal: Reports: Leg Pain (L hip) Skin: Reports: No Symptoms Neurological: Reports: No Symptoms Psychiatric: Reports: No Symptoms ED EXAM, GENERAL - Physical Exam Exam: See Below Exam Limited By: No Limitations General Appearance: Alert, WD/WN, No Apparent Distress Eye Exam: Bilateral Eye: EOMI, PERRL Head: Atraumatic, Normocephalic Neck: Normal Inspection, Supple, Non-Tender, Full Range of Motion Respiratory/Chest: No Respiratory Distress, Lungs Clear, Normal Breath Sounds, No Accessory Muscle Use, Chest Non-Tender Cardiovascular: Normal Peripheral Pulses, Regular Rate, Rhythm, No Edema, No Murmur Peripheral Pulses: 4+: Posterior Tibial (L), Posterior Tibial (R), Dorsalis Pedis (L), Dorsalis Pedis (R) GI/Abdominal: Soft, Non-Tender, No Distention, No Mass (Female) Exam: Deferred Rectal (Female) Exam: Deferred Back Exam: Normal Inspection, Full Range of Motion. No: Muscle Spasm, Paraspinal Tenderness, Vertebral Tenderness Extremities: Normal Inspection, Limited Range of Motion (Pt. had discomfort active flexion of L hip. No rotation or shortening noted to L lower extremity. Pelvis is stable. No crepitus noted.) Neurological: Alert, Oriented, CN II-XII Intact, Normal Cognition, Normal Reflexes, No Motor/Sensory Deficits Psychiatric: Normal Affect, Normal Mood Course - Vital Signs Last Recorded V/S: Last Vital Signs Temp 36.4 C 11/07/21 00:24 Pulse 105 H 11/07/21 00:24 Resp 18 11/07/21 00:24 BP 159/79 H 11/07/21 00:24 Pulse Ox 93 L 11/07/21 00:24 - Orders/Labs/Meds Orders: Active Orders 24 hr Category Date Time Status Patient Status [ADT] Routine ADT 11/07/21 03:06 Ordered Hip Min 2V or 3V w Pelvis Lt [CR] Stat Exams 11/07/21 00:28 Taken UA RFX ALEXUS AND CULT IF INDIC [URIN] Stat Lab 11/07/21 01:54 Ordered UA W/MICROSCOPIC [URIN] Stat Lab 11/07/21 01:53 Ordered Labs: Laboratory Tests 11/07/21 11/07/21 11/07/21 Range/Units 02:10 02:10 02:10 WBC 8.0 (4.0-10.2) K/uL RBC 4.24 (3.77-5.09) M/uL Hgb 12.9 D (11.7-15.5) g/dL Hct 37.6 (34.0-46.0) % MCV 88.7 D (84.0-98.0) fL MCH 30.4 (28.2-33.3) pg MCHC 34.3 (31.7-36.0) g/dL RDW 13.2 (11.2-14.1) % Plt Count 150 D (150-350) K/uL Neut % (Auto) 74.3 (45.0-80.0) % Lymph % (Auto) 15.9 (10.0-50.0) % Sterling % (Auto) 8.0 (2.0-14.0) % Eos % (Auto) 1.5 (0.0-5.0) % Baso % (Auto) 0.3 (0.0-2.0) % Neut # (Auto) 5.93 (1.40-7.00) K/uL Lymph # (Auto) 1.27 (0.50-3.50) K/uL Sterling # (Auto) 0.64 (0.00-1.00) K/uL Eos # (Auto) 0.12 (0.00-0.50) K/uL Baso # (Auto) 0.02 (0.00-0.20) K/uL PT 10.3 (9.6-11.3) SEC INR 1.0 APTT (23.6-29.8) SEC Sodium 140 (136-145) mmol/L Potassium 4.2 (3.5-5.1) mmol/L Chloride 104 (98-107) mmol/L Carbon Dioxide 24.4 (21.0-32.0) mmol/L Anion Gap 11.6 (7-15) meq/L BUN 16 (7-18) mg/dL Creatinine 0.88 (0.51-1.17) mg/dL Est Cr Clr Drug Dosing TNP Estimated GFR (MDRD) > 60 mL/min Glucose 126 H (70-99) mg/dL Calcium 10.0 (8.5-10.1) mg/dL Total Bilirubin 0.4 (0.2-1.0) mg/dL AST 28 (15-37) U/L ALT 29 (12-78) U/L Alkaline Phosphatase 100 (46-116) IU/L Total Protein 7.1 (6.4-8.2) g/dL Albumin 3.8 (3.4-5.0) g/dL 11/07/21 Range/Units 02:10 WBC (4.0-10.2) K/uL RBC (3.77-5.09) M/uL Hgb (11.7-15.5) g/dL Hct (34.0-46.0) % MCV (84.0-98.0) fL MCH (28.2-33.3) pg MCHC (31.7-36.0) g/dL RDW (11.2-14.1) % Plt Count (150-350) K/uL Neut % (Auto) (45.0-80.0) % Lymph % (Auto) (10.0-50.0) % [place] % (Auto) (2.0-14.0) % Eos % (Auto) (0.0-5.0) % Baso % (Auto) (0.0-2.0) % Neut # (Auto) (1.40-7.00) K/uL Lymph # (Auto) (0.50-3.50) K/uL [place] # (Auto) (0.00-1.00) K/uL Eos # (Auto) (0.00-0.50) K/uL Baso # (Auto) (0.00-0.20) K/uL PT (9.6-11.3) SEC INR APTT 23.6 (23.6-29.8) SEC Sodium (136-145) mmol/L Potassium (3.5-5.1) mmol/L Chloride (98-107) mmol/L Carbon Dioxide (21.0-32.0) mmol/L Anion Gap (7-15) meq/L BUN (7-18) mg/dL Creatinine (0.51-1.17) mg/dL Est Cr Clr Drug Dosing Estimated GFR (MDRD) mL/min Glucose (70-99) mg/dL Calcium (8.5-10.1) mg/dL Total Bilirubin (0.2-1.0) mg/dL AST (15-37) U/L ALT (12-78) U/L Alkaline Phosphatase (46-116) IU/L Total Protein (6.4-8.2) g/dL Albumin (3.4-5.0) g/dL Meds: Medications Discontinued Medications Generic Name Dose Route Start Last Admin Trade Name Bipinq PRN Reason Stop Dose Admin Hydrocodone Bitart/Acetaminophen 1 tab 11/07/21 01:07 11/07/21 01:17 Acetaminophen/Hydrocodone 325-10 Mg Tab PO 11/07/21 01:08 1 tab ONETIME ONE Administration - Radiology Interpretation Free Text/Narrative:: L hip and pelvis radiographs were obtained. Non-displaced fracture noted of L acetabulum. Departure - Departure Time of Disposition: 03:12 Disposition: Refer to Observation Clinical Impression: Acetabulum fracture, left - Discharge Information Referrals: Mallory Malcolm, BILINGUAL ADMINISTRATIVE ASSISTANT [Primary Care Provider] - Forms: ED Department Discharge Sepsis Event Note (ED) - Focused Exam Vital Signs: Vital Signs Temp Pulse Resp BP Pulse Ox 11/07/21 00:24 36.4 C 105 H 18 159/79 H 93 L - Problem List Review Problem List Initiated/Reviewed/Updated: Yes - My Orders Last 24 Hours: My Active Orders 11/07/21 00:28 Hip Min 2V or 3V w Pelvis Lt [CR] Stat 11/07/21 01:53 UA W/MICROSCOPIC [URIN] Stat 11/07/21 01:54 UA RFX ALEXUS AND CULT IF INDIC [URIN] Stat 11/07/21 03:06 Patient Status [ADT] Routine - Assessment/Plan Last 24 Hours: My Active Orders 11/07/21 00:28 Hip Min 2V or 3V w Pelvis Lt [CR] Stat 11/07/21 01:53 UA W/MICROSCOPIC [URIN] Stat 11/07/21 01:54 UA RFX ALEXUS AND CULT IF INDIC [URIN] Stat 11/07/21 03:06 Patient Status [ADT] Routine Plan: Pt. will be admitted observation for pain control. At this point, she does not meet criteria for acute admission. She is a code 1. Images were pushed to Topic. Discussed case with Dr. Prajapati. He advised partial weight bearing for 6 weeks. Orthopedics referral in 2 weeks. Start oxycodone 10mg every 4-6 hours as needed for pain. Start Miralax 17gm daily. PT/OT referral Up with assistance, likely will need 2, possibly 1 with walker. JOSSY quesada for DVT prevention Vitals Q6 hours Regular diet UA is pending.
[2021-11-07 02:57] LABS: ANION GAP 11.6 meq/L (7-15); CHLORIDE,CL 104 mmol/L (98-107); SODIUM,NA 140 mmol/L (136-145)
[2021-11-07] MEDS ORDERED: oxyCODONE 5 MG Tab PO PRN (03:22)
[2021-11-07] MEDS ORDERED: Calcium Carbonate 500 MG Tab.Chew PO PRN (03:24)
[2021-11-07] MEDS ORDERED: Acetaminophen 325 MG Tab PO PRN (03:24)
[2021-11-07] MEDS ORDERED: Amoxicillin 250 MG Cap PO PRN (04:10)
[2021-11-07] MEDS ORDERED: Polyethylene Glycol 3350 Powder 510 GM Bot PO SCH (08:00)
[2021-11-07] MEDS ORDERED: [UNRECOGNIZED DRUG - OTHER] PO SCH (08:00)
[2021-11-07] MEDS ORDERED: MSM PO SCH (08:00)
[2021-11-07] MEDS ORDERED: MAGNESIUM PO SCH (08:00)
[2021-11-07] MEDS ORDERED: [UNRECOGNIZED DRUG - OTHER] PO SCH (08:00)
[2021-11-07] MEDS ORDERED: VIT C E PO SCH (08:00)
[2021-11-07] MEDS ORDERED: CHOLECALCIFEROL 2000 UNIT PO SCH (08:00)
[2021-11-07] MEDS ORDERED: GLUC SU PO SCH (08:00)
[2021-11-07] MEDS: Oxybutynin 5 MG Tab PO SCH ×2 (08:33→19:25)
[2021-11-07] MEDS: Calcium Carbonate/Vitamin D3 625 MG-125 Unit Tab PO SCH (08:33)
[2021-11-07] MEDS: Omeprazole 20 MG Cap.CR PO SCH (08:34)
[2021-11-07] MEDS: Cholecalciferol (Vitamin D3) 25 MCG Tab PO SCH (08:34)
[2021-11-07] MEDS: Ferrous Sulfate 325 MG Tab PO SCH (08:34)
[2021-11-07] MEDS: Multivitamin Tab PO SCH (08:34)
[2021-11-07] MEDS: buPROPion 150 MG Tab.ER PO SCH (14:53)
[2021-11-07] MEDS: Cyclobenzaprine 10 MG Tab PO PRN (15:45)
[2021-11-07] MEDS: Acetaminophen 500 MG Tab PO PRN ×2 (15:46→23:51)
[2021-11-07] MEDS ORDERED: Citalopram 20 MG Tab PO SCH (20:00)
[2021-11-07] MEDS ORDERED: Pravastatin 20 MG Tab PO SCH (20:00)
[2021-11-08] MEDS ORDERED: Polyethylene Glycol 3350 Powder 17 GM Packet PO SCH (08:00)
[2021-11-08] MEDS: buPROPion 150 MG Tab.ER PO SCH (08:15)
[2021-11-08] MEDS: Omeprazole 20 MG Cap.CR PO SCH (08:15)
[2021-11-08] MEDS: Oxybutynin 5 MG Tab PO SCH (08:15)
[2021-11-08] MEDS: Cyclobenzaprine 10 MG Tab PO PRN ×2 (08:23→16:42)
[2021-11-08] MEDS: Acetaminophen 500 MG Tab PO PRN ×2 (08:24→16:42)
[2021-11-08 09:01] VITALS: BP 128/87; PULSE 73
[2021-11-08] MEDS: Calcium Carbonate/Vitamin D3 625 MG-125 Unit Tab PO SCH (09:32)
[2021-11-08] MEDS: Multivitamin Tab PO SCH (09:32)
[2021-11-08] MEDS: Ferrous Sulfate 325 MG Tab PO SCH (09:33)
[2021-11-08] MEDS ORDERED: Multivitamin Tab PO SCH (12:00)
[2021-11-08] MEDS ORDERED: Calcium Carbonate/Vitamin D3 625 MG-125 Unit Tab PO SCH (12:00)
[2021-11-08] MEDS ORDERED: Ferrous Sulfate 325 MG Tab PO SCH (12:00)
[2021-11-08] MEDS: Cholecalciferol (Vitamin D3) 25 MCG Tab PO SCH (12:33)
--- NOTE | 2021-11-08 13:59 | PCM.DCSUM1 ---
Discharge Summary - Hospital Course Brief History: presented [employer] 11/07/21 after a mechanical fall at home. pain in left posterior hip. unable to ambulate without assistance. Diagnosis: Stroke: No Modified Bland Scale: Mod.Disablility Requiring Some Help,Able to Walk Without Assistance Modified Mario Scale Score: 3 - Discharge Data Discharge Date: 11/08/21 Discharge Disposition: Home, W Home Health Agency 06 Condition: Good - Referral to Home Health Date of Face to Face Encounter: 11/08/21 Reason for Homebound Status: requires assistance of another person to leave the house, requires assistive device to ambulate, requires frequent rests Primary Care Physician: Mallory Malcolm NP Skilled Need: requires assistive device to ambulate, requires assist of another person to leave the home, requires frequent stops/rests. - Discharge Diagnosis/Problem(s) (1) Acetabulum fracture, left SNOMED Code(s): 24512046 ICD Code: S32.402A - UNSP FRACTURE OF LEFT ACETABULUM, INIT FOR CLOS FX Status: Acute Priority: Medium Current Visit: Yes Onset Date: ~11/07/21 Qualifiers: Encounter type: initial encounter Sublocation of acetabulum: posterior wall Fracture type: closed Fracture alignment: nondisplaced Qualified Code(s): S32.425A - Nondisplaced fracture of posterior wall of left acetabulum, initial e ncounter for closed fracture (2) UTI (urinary tract infection), uncomplicated SNOMED Code(s): 16534054 ICD Code: N39.0 - URINARY TRACT INFECTION, SITE NOT SPECIFIED Status: Acute Priority: Low Current Visit: Yes Onset Date: ~11/07/21 Problem Details: urine culture positive for >100K CFU gram negative rods - Patient Summary/Data Consults: Consultations 11/07/21 03:21 OT Evaluation and Treatment [CONS] Routine PT Evaluation and Treatment [CONS] Routine Recommended Follow-up Testing/Procedures: follow up with orthopedic surgery in 2 weeks. may go to ortho walk in clinic. Hospital Course: krishna presented to the ED [employer] 11/07/21 via EMS after a mechanical fall at her home. she was complaining of left posterior hip pain and was unable to ambulate secondary to pain and feeling unstable. While in the ED pelvic XR revealed a left posterior acetabular fracture that was non-displaced. ortho surgery at [facility] was contacted with recommendations for conservative management, pain control, and ortho follow up in two weeks at the ortho walk in clinic. Pt was admitted observations, her Urine culture returned positive for >100K CFUs of gram negative rods. she ambulated with a walker and an aid. discussion held with family and decision was made for her to go home with her daughter to [place] where she will have 24/7 supervision and assistance. She will also require home health PT/OT and an aid. She will follow up with ortho walk in clinic in two weeks and will see her PCP for post hospital follow up. Plan of care addressed at bedside with daughter and MIS on the telephone. all questions and concerns were addressed prior to discharge. Nursing was present and will assist with coordinating case management initiation of home health. - Patient Instructions Diet: Regular Diet as Tolerated Activity: Partial Weight Bearing Driving: Do Not Drive Showering/Bathing: May Shower - Discharge Plan *PRESCRIPTION DRUG MONITORING PROGRAM REVIEWED*: Not Applicable *COPY OF PRESCRIPTION DRUG MONITORING REPORT IN PATIENT MIRACLE: Not Applicable Home Medications: Home Meds Calcium Carbonate [Tums] 500 mg PO DAILY PRN 05/11/18 [History] Citalopram [Citalopram HBr] 20 mg PO BEDTIME 05/11/18 [History] Cyanocobalamin (Vitamin B-12) [B-12] 1,000 mcg PO MOWEFR@05/11/18 [History] Multivitamin [Super Multivitamin] 1 each PO DAILY 05/11/18 [History] Omeprazole 20 mg PO DAILY 05/11/18 [History] Oxybutynin 2.5 mg PO BID@729,199905/11/18 [History] Pravastatin [Pravachol] 20 mg PO BEDTIME 05/11/18 [History] Ubidecarenone [Coq-10] 100 mg PO BID 05/11/18 [History] Amoxicillin 2,000 mg PO ASDIRECTED PRN 11/07/21 [History] Calcium Carbonate/Vitamin D3 [Calcium Carbonate/Vitamin D 600 MG-200 Unit] 1 tab PO DAILY 11/07/21 [History] Cholecalciferol (Vitamin D3) [Vitamin D3] 25 mcg PO DAILY 11/07/21 [History] Ferrous Sulfate 325 mg PO SUTUTHSA@11/07/21 [History] buPROPion HCL [Wellbutrin Xl] 150 mg PO ASDIRECTED 11/07/21 [History] Acetaminophen [Tylenol Extra Strength] 1,000 mg PO Q8H PRN tablet 11/08/21 [Rx] Ciprofloxacin HCl [Cipro] 250 mg PO BID #6 tablet 11/08/21 [Rx] methocarbamoL [Methocarbamol] 250 mg PO BID PRN #15 tablet 11/08/21 [Rx] oxyCODONE 5 mg PO BID PRN #12 cup 11/08/21 [Rx] polyethylene glycoL 3350 [MiraLAX] 17 gm PO DAILY packet 11/08/21 [Rx] Oxygen Therapy Mode: Room Air Forms: ED Department Discharge Referrals: Mallory Malcolm, [employer] [Primary Care Provider] - - Discharge Summary/Plan Comment DC Time >30 min.: Yes Total # of Minutes for Discharge Time: 60 Discharge Summary/Plan Comment: Krishna presented to the ED via EMS after a mechanical fall at home. she was complaining of left posterior hip pain and inability to ambulate. pelvic XR revealed left posterior acetabular fracture that was non displaced. Urine culture positive for gram negative rods. Pt admitted observation for pain control. medically stable for discharge on the afternoon of 11/08/20. she will go home with her daughter to a single level home where she will have 30/05 supervision. she will require PT/OT/ and an aide for home health. she will also require follow up with ortho walk in clinic two weeks post discharge. All questions and concerns were addressed at bedside prior to discharge. nursing will coordinate with block and case maker to insure that home health is set up. - Patient Data Vitals - Most Recent: Last Vital Signs Temp 98.2 F 11/08/21 08:00 Pulse 73 11/08/21 08:00 Resp 16 11/08/21 08:00 BP 128/87 11/08/21 08:00 Pulse Ox 97 11/08/21 08:00 Weight - Most Recent: 215 lb I&O - Last 24 hours: Intake & Output 11/07/21 11/08/21 11/08/21 22:59 06:59 14:59 Intake Total 720 760 Balance 720 760 ALEXUS Results - Last 24 hrs: Microbiology 11/07/21 07:40 Urine Culture - Preliminary Urine, Voided Gram Negative Rods Med Orders - Current: Current Medications Acetaminophen (Acetaminophen 500 Mg Tab) 1,000 mg PO Q8H PRN PRN Reason: Pain Last Admin: 11/08/21 08:24 Dose: 1,000 mg Documented by: Amoxicillin (Amoxicillin 250 Mg Cap) 2,000 mg PO ASDIRECTED PRN PRN Reason: Other Bupropion HCl (Bupropion 150 Mg Tab.Er) 150 mg PO DAILY [facility] Last Admin: 11/08/21 08:15 Dose: 150 mg Documented by: Calcium Carbonate (Calcium Carbonate/Vitamin D3 625 Mg-125 Unit Tab) 1 tab PO 1200 [facility] Last Admin: 11/08/21 12:34 Dose: 1 tab Documented by: Calcium Carbonate/Glycine (Calcium Carbonate 500 Mg Tab.Chew) 500 mg PO DAILY PRN PRN Reason: Pain Last Admin: 11/07/21 23:16 Dose: 500 mg Documented by: Cholecalciferol (Cholecalciferol (Vitamin D3) 25 Mcg Tab) 25 mcg PO DAILY [facility] Last Admin: 11/08/21 12:33 Dose: 25 mcg Documented by: Citalopram Hydrobromide (Citalopram 20 Mg Tab) 20 mg PO BEDTIME [facility] Last Admin: 11/07/21 19:25 Dose: 20 mg Documented by: Coenzyme Q10 (Ubidecarenone 100 Mg Cap) 100 mg PO 1200,1800 [facility] Last Admin: 11/08/21 12:33 Dose: 100 mg Documented by: Cyanocobalamin (Cyanocobalamin (Vitamin B12) 1,000 Mcg Tab) 1,000 mcg PO MoWeFr@1200 [facility] Cyclobenzaprine HCl (Cyclobenzaprine 10 Mg Tab) 5 mg PO BID PRN PRN Reason: Muscle Spasm - Painful Last Admin: 11/08/21 08:23 Dose: 5 mg Documented by: Ferrous Sulfate (Ferrous Sulfate 325 Mg Tab) 325 mg PO SuTuThSa@1200 [facility] Last Admin: 11/08/21 12:33 Dose: 325 mg Documented by: Multivitamins/Minerals/Vitamin C (Multivitamin Tab) 1 tab PO 1200 [facility] Last Admin: 11/08/21 12:34 Dose: 1 tab Documented by: Omeprazole (Omeprazole 20 Mg Cap.Cr) 20 mg PO DAILY [facility] Last Admin: 11/08/21 08:15 Dose: 20 mg Documented by: Oxybutynin Chloride (Oxybutynin 5 Mg Tab) 2.5 mg PO BID@0730,2000 [facility] Last Admin: 11/08/21 08:15 Dose: 2.5 mg Documented by: Polyethylene Glycol (Polyethylene Glycol 3350 Powder 17 Gm Packet) 17 gm PO DAILY [facility] Last Admin: 11/08/21 08:15 Dose: 17 gm Documented by: Pravastatin Sodium (Pravastatin 20 Mg Tab) 20 mg PO BEDTIME [facility] Last Admin: 11/07/21 19:25 Dose: 20 mg Documented by: Discontinued Medications Acetaminophen (Acetaminophen 325 Mg Tab) 650 mg PO Q4HR PRN PRN Reason: Pain Hydrocodone Bitart/Acetaminophen (Acetaminophen/Hydrocodone 325-10 Mg Tab) 1 tab PO ONETIME ONE Stop: 11/07/21 01:08 Last Admin: 11/07/21 01:17 Dose: 1 tab Documented by: Calcium Carbonate (Calcium Carbonate/Vitamin D3 625 Mg-125 Unit Tab) 1 tab PO DAILY [facility] Last Admin: 11/08/21 09:32 Dose: Not Given Documented by: Coenzyme Q10 (Ubidecarenone 100 Mg Cap) 100 mg PO BID [facility] Last Admin: 11/08/21 09:33 Dose: Not Given Documented by: Cyanocobalamin (Cyanocobalamin (Vitamin B12) 1,000 Mcg Tab) 1,000 mcg PO MOWEFR@08 [facility] Ferrous Sulfate (Ferrous Sulfate 325 Mg Tab) 325 mg PO SUTUTHSA@08 [facility] Last Admin: 11/08/21 09:33 Dose: Not Given Documented by: Multivitamins/Minerals/Vitamin C (Multivitamin Tab) 1 tab PO DAILY [facility] Last Admin: 11/08/21 09:32 Dose: Not Given Documented by: Non-Formulary Medication (Cholecalciferol (Vitamin D3) [D3-2000]) 2,000 unit PO DAILY [facility] Non-Formulary Medication (Gluc Lacy/Msm/Magnesium/Vit C [Glucosamine Complex-Msm]) 2 tab PO BID [facility] Oxycodone HCl (Oxycodone 5 Mg Tab) 10 mg PO Q6H PRN PRN Reason: Pain Last Admin: 11/07/21 08:35 Dose: 10 mg Documented by: Polyethylene Glycol (Polyethylene Glycol 3350 Powder 510 Gm Bot) 17 gm PO DAILY [facility] Last Admin: 11/07/21 08:35 Dose: 17 gm Documented by:
[2021-11-09] MEDS ORDERED: Cyanocobalamin (Vitamin B12) 1,000 MCG Tab PO SCH ×2 (08:00→12:00)
== END 2021-11-08 16:48 | disposition home health service (06) ==
LOC: LL.ED 00:20 → LL.MS 02:49
PROVIDERS: ADMIT Hospitalist; ATTEND Hospitalist
DX: S32.425A Nondisplaced fracture of posterior wall of left acetabulum, initial encounter for closed fracture (principal); N39.0 Urinary tract infection, site not specified; W19.XXXA Unspecified fall, initial encounter; Z79.899 Other long term (current) drug therapy
CPT/HCPCS: 36415; 80053; 81001; 85025; 85610; 85730; 87086; 87088; 87186; 99284; A9270-GY; G0378

== ENCOUNTER 2023-09-17 05:24 | Emergency (ER) | payer MEDICARE, OTHER ==
[2023-09-17] MEDS ORDERED: Ondansetron 4 MG/2 ML SDV IVPUSH ONE (05:32)
[2023-09-17] MEDS ORDERED: Sodium Chloride 0.9% 10 ML Syringe FLUSH PRN (06:07)
[2023-09-17 06:24] LABS: EOSINOPHILS ABSOLUTE AUTO 0.03 K/uL (0.00-0.50); EOSINOPHILS PERCENT AUTO 0.4 % (0.0-5.0); HEMATOCRIT 36.9 % (34.0-46.0); HEMOGLOBIN 12.5 g/dL (11.7-15.5); LYMPHOCYTES ABSOLUTE AUTO 0.72 K/uL (0.50-3.50); LYMPHOCYTES PERCENT AUTO 10.8 % (10.0-50.0); MEAN CORPUSCULAR HEMOGLOBIN 30.9 pg (28.2-33.3); MEAN CORPUSCULAR HGB CONC 33.9 g/dL (31.7-36.0); MEAN CORPUSCULAR VOLUME 91.3 fL (84.0-98.0); MONOCYTES ABSOLUTE AUTO 0.35 K/uL (0.00-1.00); MONOCYTES PERCENT AUTO 5.2 % (2.0-14.0); NEUTROPHILS ABSOLUTE AUTO 5.57 K/uL (1.40-7.00); NEUTROPHILS PERCENT AUTO 83.6 % (45.0-80.0); PLATELET COUNT,PLT 119 K/uL (150-350); RED BLOOD CELL COUNT 4.04 M/uL (3.77-5.09); RED CELL DISTRIBUTION WIDTH 13.8 % (11.2-14.1); WHITE BLOOD CELL COUNT,WBC 6.7 K/uL (4.0-10.2)
[2023-09-17] MEDS ORDERED: Prochlorperazine 5 MG in Sodium Chloride 0.9% 100 ML IV ONE (06:24)
[2023-09-17] MEDS ORDERED: Prochlorperazine 10 MG/2 ML SDV IVPUSH ONE (06:29)
[2023-09-17 06:43] LABS: ALANINE AMINOTRANSFERASE,ALT 54 U/L (12-78); ALBUMIN 3.7 g/dL (3.4-5.0); ALKALINE PHOSPHATASE 152 IU/L (46-116); ANION GAP 12.4 meq/L (7-15); ASPARTATE AMNIOTRANSFERASE,AST 65 U/L (15-37); BILIRUBIN TOTAL 0.7 mg/dL (0.2-1.0); BLOOD UREA NITROGEN,BUN 14 mg/dL (7-18); CARBON DIOXIDE,CO2 23.6 mmol/L (21.0-32.0); CHLORIDE,CL 104 mmol/L (98-107); ESTIMATED GFR 64 mL/min (>=60); GLUCOSE RANDOM 101 mg/dL (70-99); POTASSIUM,K 4.2 mmol/L (3.5-5.1); PROTEIN TOTAL,TP 6.9 g/dL (6.4-8.2); SODIUM,NA 140 mmol/L (136-145)
[2023-09-17] MEDS ORDERED: Aluminum Hydroxide/Magnesium Hydroxide/Simethicone Susp 30 ML Cup PO ONE (06:57)
[2023-09-17] MEDS ORDERED: Lidocaine 2% Viscous Solution 15 ML UD PO ONE (06:57)
[2023-09-17 07:13] VITALS: BP 122/50; PULSE 90
== END 2023-09-17 08:45 | disposition home or self-care (01) ==
LOC: LL.ED 05:24
DX: K21.9 Gastro-esophageal reflux disease without esophagitis (principal); K44.9 Diaphragmatic hernia without obstruction or gangrene; E78.00 Pure hypercholesterolemia, unspecified; E66.9 Obesity, unspecified; Z79.899 Other long term (current) drug therapy
CPT/HCPCS: 36415; 74022; 80053; 85025; 93005; 96374; 96375; 99284; A9270; J0780; J2405; 93010; J3490